=== PATIENT | male | born 1940 | race Caucasian/White ===

== ENCOUNTER 2016-09-02 17:50 | Observation (INO) | payer MEDICARE, BC ==
[2016-09-02 18:23] LABS: Hematocrit 45 % (42-52); Hemoglobin 15.1 g/dl (14.0-18.0); Mean Corpuscular HGB Conc 34 g/dl (31-36); Mean Corpuscular Hemoglobin 31 pg (27-31); Mean Corpuscular Volume 91 fL (80-94); Mean Platelet Volume 8 um3 (7.4-10.4); Red Blood Count 4.91 10^6/ul (4.0-5.4); Red Cell Distribution Width 14 % (10.5-15); White Blood Count 9.2 10^3/ul (3.5-10.8)
[2016-09-02 18:35] LABS: Albumin 4.6 g/dL (3.2-5.2); BUN/Creatinine Ratio 16.8 (8-20); Calcium 9.7 mg/dL (8.6-10.3); EGFR African American 80.7 (>60); EGFR Non-African American 62.8 (>60); Globulin 3.2 g/dL (2-4); Potassium 3.6 mmol/L (3.5-5.0); Total Bilirubin 0.7 mg/dL (0.2-1.0); Total Protein 7.8 g/dL (6.4-8.9)
[2016-09-02 18:38] LABS: Troponin I 0.05 ng/mL (<0.04)
--- NOTE | 2016-09-02 18:48 | RAD ---
HISTORY: Chest pain COMPARISONS: September 12, 2014 VIEWS:1: Single frontal portable view of the chest at 6:25 PM FINDINGS: LINES AND TUBES: None. CARDIOMEDIASTINAL SILHOUETTE: The aorta is tortuous. The cardiomediastinal silhouette is otherwise normal for portable technique. PLEURA: There is stable elevation of left hemidiaphragm. LUNG PARENCHYMA: The lungs are clear. ABDOMEN: The upper abdomen is clear. There is no subphrenic gas. BONES AND SOFT TISSUES: The patient is status post median sternotomy. IMPRESSION: NO ACTIVE CARDIOPULMONARY DISEASE.
[2016-09-02] MEDS ORDERED: Nitroglycerin TAB 0.4 MG* 0.4 MG TAB SL ONE (19:03)
[2016-09-02] MEDS ORDERED: Labetalol IV* 5 MG/ML 20 ML VIAL IV PUSH ONE (19:26)
[2016-09-02] MEDS ORDERED: Enoxaparin(*) 100 MG/ML SYR SUBCUT ONE (19:33)
[2016-09-02] MEDS: Nitroglycerin 2% OINT* 1 GM PAK TOPICAL SCH (20:05)
[2016-09-02] MEDS ORDERED: ALPRAZolam TAB* 0.25 MG PO PRN (20:11)
[2016-09-02 20:28] LABS: Urine Bacteria 1+ (Absent); Urine Bilirubin Negative (Negative); Urine Glucose Negative (Negative); Urine Nitrite Negative (Negative)
[2016-09-02] MEDS ORDERED: Metoprolol Tartrate TAB* 25 MG PO SCH (21:00)
[2016-09-02 21:01] LABS: Troponin I 0.06 ng/mL (<0.04)
[2016-09-02] MEDS: Metoprolol Tartrate TAB* 25 MG PO SCH (21:34)
[2016-09-02] MEDS: Gabapentin CAP(*) 100 MG PO SCH (21:34)
[2016-09-02] MEDS ORDERED: Heparin VIAL(*) 5000 UNITS/ML VIAL (FIVE THOUSAND) SUBCUT SCH (22:00)
--- NOTE | 2016-09-02 22:43 | ED ---
Jade Domingo Matthew, scribed for Mathew Ulloa MD on 09/02/16 at 1934 . HPI Chest Pain - HPI Summary HPI Summary: A 76 y/o male presents to the ED with worsening chest pain since 14:00. The pain is rated 3/10 in severity and described as tightness. The patient states that he always had baseline chest tightness; however, the sensation worsened today, which prompted him to present to the ED. Associated symptoms include mild headache, lightheadedness, unsteadiness, and increased chest tightness. The symptoms started today while the patient was shopping at [employer]. He noted that he began to feel dehydrated and drank 3 pints of water without relief. He then returned home and took aspirin and his symptoms did not subside. Currently , the patient's chest tightness feels like baseline. The patients been on a steroids since 08/29/16 for a rash on his chest. He has a Hx of an episode of syncopal episodes. - History of Current Complaint Chief Complaint: EDChestPainROMI Hx Obtained From: Patient Onset/Duration: Started Hours Ago, Atraumatic, Resolved Time of Onset: 14:00 Timing: Constant Initial Severity: Mild Current Severity: Mild Pain Intensity: 3 Pain Scale Used: 0-10 Numeric Character: Tightness Associated Signs and Symptoms: Positive: Chest Pain, Lightheadedness, Other: - Headache; Unsteady Gait - Allergy/Home Medications Allergies/Adverse Reactions: Allergies Allergy/AdvReac Type Severity Reaction Status Date / Time Pregabalin [From Lyrica] Allergy Intermediate change Verified 03/29/15 07:13 mental status Sertraline [From Zoloft] Allergy Intermediate Dizziness Verified 03/29/15 07:13 Escitalopram [From Lexapro] Allergy Headache Verified 03/29/15 07:13 Fluticasone [From Flovent] Allergy loss of Verified 03/29/15 07:13 voice Lisinopril Allergy with hctz Verified 03/29/15 07:13 constant cough Home Medications: Home Medications Ciclesonide 80 MCG MDI (NF) [Alvesco 80 MDI (NF)] 1 inhaler INH DAILY 09/02/16 [ History Confirmed 09/02/16] Fexofenadine (NF) [Aracely 180 (NF)] 180 mg PO DAILY 09/02/16 [History Confirmed 09/02/16] Gabapentin [Gabapentin] 100 mg PO BID 09/02/16 [History Confirmed 09/02/16] Levalbuterol Tartrate [Levalbuterol Tartrate Hfa] 2 puff INH Q4HR PRN 09/02/16 [ History Confirmed 09/02/16] Metoprolol Tartrate [Metoprolol Tartrate] 12.5 mg PO BID 09/02/16 [History Confirmed 09/02/16] Spironolactone/HCTZ 25-25 MG* [Aldactazide 25-25*] 0.5 mg PO BID 09/02/16 [ History Confirmed 09/02/16] Tamsulosin HCl [Tamsulosin HCl] 0.4 mg PO DAILY 09/02/16 [History Confirmed ] Zolpidem TAB* [Ambien*] 10 mg PO QPM 09/02/16 [History Confirmed 09/02/16] amLODIPine TAB* [Norvasc TAB*] 5 mg PO DAILY 09/02/16 [History Confirmed ] PMH/Surg Hx/FS Hx/Imm Hx Endocrine/Hematology History: Reports: Other Endocrine/Hematological Disorders - "I'm a prediabetic" Denies: Hx Diabetes, Hx Systemic Lupus Erythematosus Cardiovascular History: Reports: Hx Aneurysm - aaa 2004, Hx Hypercholesterolemia , Hx Hypertension, Other Cardiovascular Problems/Disorders - cardiac bypass 2008 Denies: Hx Congestive Heart Failure, Hx Pacemaker/ICD Respiratory History: Reports: Hx Asthma GI History: Reports: Hx Gastroesophageal Reflux Disease History: Reports: Hx Renal Disease - abnormal gfr, Other Problems/ Disorders - hx stones,prostate ca Denies: Hx Dialysis Musculoskeletal History: Reports: Other Musculoskeletal History - arthritis Denies: Hx Rheumatoid Arthritis Sensory History: Denies: Hx Hearing Aid Neurological History: Reports: Other Neuro Impairments/Disorders - neuropathy of b/l toes Psychiatric History: Reports: Hx Anxiety Denies: Hx Panic Disorder - Cancer History Cancer Type, Location and Year: prostate CA with radiation Hx Chemotherapy: No Hx Radiation Therapy: Yes - Surgical History Surgery Procedure, Year, and Place: Triple A(abdomen surgery), Quadruple bypass with 5 stents ,hernia x3,gallbladder 1972,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/25/14 IMPLANTABLE EVENT [employer] Infectious Disease History: No Infectious Disease History: Denies: Traveled Outside the [place] in Last 30 Days - Family History Known Family History: Positive: Cardiac Disease - Social History Alcohol Use: Rare Alcohol Amount: glass of wine a week Substance Use Type: Reports: None Smoking Status (MU): Former Smoker Review of Systems Constitutional: Negative Eyes: Negative ENT: Negative Positive: Chest Pain - described as tightness Respiratory: Negative Gastrointestinal: Negative Genitourinary: Negative Musculoskeletal: Negative Skin: Negative Neurological: Other - lightheadedness; unsteady gait Positive: Headache Psychological: Normal All Other Systems Reviewed And Are Negative: Yes Physical Exam Triage Information Reviewed: Yes Vital Signs On Initial Exam: Initial Vitals Temp Pulse Resp BP Pulse Ox 98.8 F 67 18 219/114 94 09/02/16 17:58 09/02/16 17:58 09/02/16 17:58 09/02/16 17:58 09/02/16 17:58 Vital Signs Reviewed: Yes Appearance: Positive: Well-Appearing, No Pain Distress Skin: Positive: Warm, Skin Color Reflects Adequate Perfusion, Dry Head/Face: Positive: Normal Head/Face Inspection Eyes: Positive: Normal ENT: Positive: Normal ENT inspection Neck: Positive: Supple, Nontender Respiratory/Lung Sounds: Positive: Clear to Auscultation, Breath Sounds Present Cardiovascular: Positive: RRR Abdomen Description: Positive: Nontender, Soft Bowel Sounds: Positive: Present Musculoskeletal: Positive: Normal, Strength/ROM Intact Neurological: Positive: Normal, Sensory/Motor Intact, Alert, Oriented to Person Place, Time Psychiatric: Positive: Normal, Affect/Mood Appropriate - [place] Coma Scale Coma Scale Total: 15 Diagnostics - Vital Signs Vital Signs Temp Pulse Resp BP Pulse Ox 09/02/16 18:06 72 17 205/100 09/02/16 17:58 98.8 F 67 18 219/114 94 - Laboratory Lab Results: Lab Results 09/02/16 09/02/16 09/02/16 Range/Units 18:00 18:00 18:00 WBC 9.2 (3.5-10.8) 10^3/ul RBC 4.91 (4.0-5.4) 10^6/ul Hgb 15.1 (14.0-18.0) g/dl Hct 45 (42-52) % MCV 91 (80-94) fL MCH 31 (27-31) pg MCHC 34 (31-36) g/dl RDW 14 (10.5-15) % Plt Count 206 (150-450) 10^3/ul MPV 8 (7.4-10.4) um3 Neut % (Auto) 76.8 (38-83) % Lymph % (Auto) 12.9 L (25-47) % Refugio % (Auto) 8.5 (1-9) % Eos % (Auto) 1.3 (0-6) % Baso % (Auto) 0.5 (0-2) % Absolute Neuts (auto) 7.1 (1.5-7.7) 10^3/ul Absolute Lymphs (auto) 1.2 (1.0-4.8) 10^3/ul Absolute Monos (auto) 0.8 (0-0.8) 10^3/ul Absolute Eos (auto) 0.1 (0-0.6) 10^3/ul Absolute Basos (auto) 0.1 (0-0.2) 10^3/ul Absolute Nucleated RBC 0 10^3/ul Nucleated RBC % 0 Sodium 133 (133-145) mmol/L Potassium 3.6 (3.5-5.0) mmol/L Chloride 98 L (101-111) mmol/L Carbon Dioxide 28 (22-32) mmol/L Anion Gap 7 (2-11) mmol/L BUN 19 (6-24) mg/dL Creatinine 1.13 (0.67-1.17) mg/dL Est GFR ( Amer) 80.7 (>60) Est GFR (Non-Af Amer) 62.8 (>60) BUN/Creatinine Ratio 16.8 (8-20) Glucose 100 (70-100) mg/dL Lactic Acid 1.2 (0.5-2.0) mmol/L Calcium 9.7 (8.6-10.3) mg/dL Total Bilirubin 0.70 (0.2-1.0) mg/dL AST 22 (13-39) U/L ALT 25 (7-52) U/L Alkaline Phosphatase 46 (34-104) U/L Total Creatine Kinase 243 H (10-223) U/L CK-MB (CK-2) 10.9 H (0.6-6.3) ng/mL Troponin I 0.05 H* (<0.04) ng/mL Total Protein 7.8 (6.4-8.9) g/dL Albumin 4.6 (3.2-5.2) g/dL Globulin 3.2 (2-4) g/dL Albumin/Globulin Ratio 1.4 (1-3) Urine Color Urine Appearance Urine pH (5-9) Ur Specific Roca (1.010-1.030) Urine Protein (Negative) Urine Ketones (Negative) Urine Blood (Negative) Urine Nitrate (Negative) Urine Bilirubin (Negative) Urine Urobilinogen (Negative) Ur Leukocyte Esterase (Negative) Urine WBC (Auto) (Absent) Urine RBC (Auto) (Absent) Urine Bacteria (Absent) Urine Glucose (Negative) 09/02/16 Range/Units 18:00 WBC (3.5-10.8) 10^3/ul RBC (4.0-5.4) 10^6/ul Hgb (14.0-18.0) g/dl Hct (42-52) % MCV (80-94) fL MCH (27-31) pg MCHC (31-36) g/dl RDW (10.5-15) % Plt Count (150-450) 10^3/ul MPV (7.4-10.4) um3 Neut % (Auto) (38-83) % Lymph % (Auto) (25-47) % Refugio % (Auto) (1-9) % Eos % (Auto) (0-6) % Baso % (Auto) (0-2) % Absolute Neuts (auto) (1.5-7.7) 10^3/ul Absolute Lymphs (auto) (1.0-4.8) 10^3/ul Absolute Monos (auto) (0-0.8) 10^3/ul Absolute Eos (auto) (0-0.6) 10^3/ul Absolute Basos (auto) (0-0.2) 10^3/ul Absolute Nucleated RBC 10^3/ul Nucleated RBC % Sodium (133-145) mmol/L Potassium (3.5-5.0) mmol/L Chloride (101-111) mmol/L Carbon Dioxide (22-32) mmol/L Anion Gap (2-11) mmol/L BUN (6-24) mg/dL Creatinine (0.67-1.17) mg/dL Est GFR ( Amer) (>60) Est GFR (Non-Af Amer) (>60) BUN/Creatinine Ratio (8-20) Glucose (70-100) mg/dL Lactic Acid (0.5-2.0) mmol/L Calcium (8.6-10.3) mg/dL Total Bilirubin (0.2-1.0) mg/dL AST (13-39) U/L ALT (7-52) U/L Alkaline Phosphatase (34-104) U/L Total Creatine Kinase (10-223) U/L CK-MB (CK-2) (0.6-6.3) ng/mL Troponin I (<0.04) ng/mL Total Protein (6.4-8.9) g/dL Albumin (3.2-5.2) g/dL Globulin (2-4) g/dL Albumin/Globulin Ratio (1-3) Urine Color Colorless Urine Appearance Clear Urine pH 7.0 (5-9) Ur Specific Roca 1.003 L (1.010-1.030) Urine Protein Negative (Negative) Urine Ketones Negative (Negative) Urine Blood 2+ H (Negative) Urine Nitrate Negative (Negative) Urine Bilirubin Negative (Negative) Urine Urobilinogen Negative (Negative) Ur Leukocyte Esterase Negative (Negative) Urine WBC (Auto) Absent (Absent) Urine RBC (Auto) Trace(0-2/hpf) (Absent) Urine Bacteria 1+ H (Absent) Urine Glucose Negative (Negative) Result Diagrams: 09/02/16 18:00 09/02/16 18:00 Lab Statement: Any lab studies that have been ordered have been reviewed, and results considered in the medical decision making process. - Radiology CXR Xray Interpretation: No Acute Changes - IMPRESSION: NO ACTIVE CARDIOPULMONARY DISEASE. Radiology Interpretation Completed By: Radiologist - EKG 17:47 Cardiac Rate: NL - 73 bpm EKG Rhythm: Sinus Rhythm EKG Interpretation: LBBB Chest Pain Course/Dx - Course Course Of Treatment: Mr. Corona presented with an atypical CP that he always has but got worse. When I saw him, he reported that he was just about back to normal. He had a left bundle branch on ecg which was new from our last (two years ago). Lashaunrbossa's criteria were not met. His initial trop was low equivocal. - Diagnoses Provider Diagnoses: Chest pain - Provider Notifications Discussed Care Of Patient With: Dr. Henderson (Cardologist) -- Notified of patient' s history. Dr. Chanel (Hospitalist) -- Notified of patient's history and will admit the patient into her services. Discharge - Discharge Plan Condition: Stable Disposition: ADMITTED TO [facility] documentation as recorded by the Jade martínez Matthew accurately reflects the service I personally performed and the decisions made by me, Mathew Ulloa MD.
--- NOTE | 2016-09-02 23:45 | HP ---
HISTORY AND PHYSICAL: DATE OF ADMISSION: 09/02/16 PROVIDER: Shwetha Kinsey NP. ATTENDING PHYSICIAN: Dr. Kendall Hooks * (report dictated by Shwetha Kinsey NP). PRIMARY CARE PROVIDER: Dr. Kade Ojeda. DRILL PRESS SET UP OPERATOR RADIAL: Dr. Helton. CHIEF COMPLAINT: Chest pain. HISTORY OF PRESENT ILLNESS: Mr. Corona is a 76-year-old male with a past medical history of coronary artery disease, status post quadruple heart bypass in 2008, abdominal aortic aneurysm, hypertension, asthma, BPH, who presents to the emergency department today with reports of chest pain. Mr. Corona reports he has chronic chest pain at his baseline ever since his quadruple heart bypass in 2008 ; however, he has gotten so used to it that he usually does not notice that. Today he reports that he went to the park and was getting out of a car. He reports that he had just smoked his pipe and states that occasionally that makes him not to feel well, so he contributed feeling a little off due to this. He reports initially he felt lightheaded, went for his walk, stopped at [facility] to grocery shop, and when he was in [facility] he started to feel worse, with report of a little headache, nausea, and realized he had not been drinking much water. So, he reports that he checked out and he drank 3 pints of water. He went home, put his groceries away, and continued to feel worse, now nothing that he had left chest wall tightness and which he reports a band-like pressure , which was not going away. He then began to become worried. He took 4 baby aspirin at home, he called his neighbor who came over and took his blood pressure, which he reports was 215/114. He called his son and the decision to call the ambulance was made. The patient reports that he continued to have chest pain through the ambulance ride, until he got here, then he reports it resolved. He has continued to have blood pressures in the 200s in the emergency department. He was not given any sublingual nitro up until the time I saw him. On my evaluation of the patient in the emergency department, he is alert and oriented x3; in no acute distress. He reports that his chest pain has "almost resolved" and continues to have what he calls his baseline chest discomfort. He was noted to have a blood pressure of 220/115. He was given a sublingual nitro which did bring his blood pressures down to around 160/70. The patient does report that he experienced some nausea when he was experiencing chest pain; denied diaphoresis. He reports he has been in "good health" and exercises daily. Now the patient states that he feels like he is back to his baseline, minus a slight headache. The patient is noted to have a troponin of 0.05 on admission and an EKG showing sinus rhythm with a left bundle branch block. The last EKG we have on file is from 2 years in 2014, showing normal sinus rhythm, with no left bundle branch block. The patient's son Jono is at the bedside. PAST MEDICAL HISTORY: 1. Asthma. 2. Hypertension. 3. Hyperlipidemia. 4. BPH. 5. GERD. 6. Coronary artery disease with history of quadruple heart bypass in 2008 at [facility], with cardiac catheterization at [facility] on 11/13/09. 7. Spinal compression. 8. Clements's esophagus. 9. History of rhabdomyolysis. 10. Abdominal aortic aneurysm in 2014. 11. History of malignant neoplasm of the prostate. 12. Neuropathy. 13. Vitamin D deficiency. 14. Questionable TIA, 09/12/14 PAST SURGICAL HISTORY: 1. Status post cholecystectomy at [facility] in 1971. 2. Hernia repair in 1987, bilateral, and left side in 2007 at [facility]. 3. Abdominal aortic aneurysm in 2004 at [facility]. 4. Prostate radium seed implantation, November 2007, [facility]. 5. Quadruple heart bypass in [facility] in 2008. 6. Cardiac catheterization in [facility] in 2009. 7. Renal cyst drained at [facility], 01/09/10. 8. Holter monitor, Dr. Henderson, [facility], October 2014. MEDICATIONS: Home Medications: 1. Amlodipine 5 mg p.o. daily. 2. Spironolactone/HCTZ 25/25, half a tablet in the morning and half a tablet in the evening. 3. Aspirin 81 mg daily. 4. Metoprolol 12.5 mg b.i.d. 5. Rosuvastatin calcium 5 mg p.o. q.p.m. 6. Nitroglycerin 0.4 mg one every 5 minutes, up to 3, p.r.n. chest pain. 7. Vitamin D daily. 8. Folic acid 400 mg p.o. b.i.d. 9. Pantoprazole DR 40 mg b.i.d. 10. Alvesco 80 mcg inhaler, 1 puff q.a.m. 11. Levalbuterol tartrate HFA q.4 to 6 hours p.r.n. shortness of breath. 12. Aracely 180 mg p.o. daily. 13. Cymbalta 60 mg p.o. daily. 14. Gabapentin 100 mg p.o. b.i.d. 15. Flomax 0.4 mg p.o. daily. 16. Ambien 10 mg p.o. q.p.m. 17. Xanax 0.25 mg one tab every q.8 hours p.r.n. 18. Ketoconazole 2% cream for face as needed, prescribed by Dr. Fitch. 19. Clobetasol Propionate 0.5% for leg b.i.d., Dr. Fitch. 20. Hydrocortisone valerate 2% mixed with econazole nitrate 1%, Dr. Fitch. 21. Tacrolimus 0.1% ? 22. Acetaminophen 500 mg p.o. q.8 hours p.r.n. 23. Multivitamin one tab p.o. daily. 24. Benadryl HCl 25 mg p.o. p.r.n. sleep and allergy. ALLERGIES: 1. LYRICA. 2. ZOLOFT. 3. LEXAPRO. 4. FLONASE. 5. LISINOPRIL. FAMILY HISTORY: The patient reports his mother and father had a history of coronary artery disease. SOCIAL HISTORY: The patient quit smoking 35 years ago and repots he started smoking a pipe approximately 1 year ago after his . Occasional alcohol use. He currently lives alone. He has two grown children, Tracy and Jono. Jono is his healthcare proxy. His number is [phone]. REVIEW OF SYSTEMS: A 14-point review of systems was performed. All the pertinent positives and negatives are mentioned in the history of present illness. All the remaining systems are negative. PHYSICAL EXAMINATION GENERAL APPEARANCE: Alert and oriented x3, 76-year-old male, sitting up in the emergency department stretcher, in no acute distress. Very pleasant, good historian. VITAL SIGNS: Temperature 98.8, heart rate 70, respirations 18, O2 sat 94% on room air, and blood pressure 219/114. HEENT: Head is normocephalic and atraumatic. Pupils equal, round, reactive to light. Oropharynx is clear. Moist mucous membranes. Good dentition. NECK: Supple. No cervical or supraclavicular lymphadenopathy. No JVD noted. RESPIRATORY: Clear to auscultation bilaterally. Good aeration throughout. CARDIAC: S1 and S2. No murmurs, rubs, or gallops are appreciated. ABDOMEN: Soft, nontender, and nondistended. Normal bowel sounds x4. EXTREMITIES: No lower extremity edema noted. 2+ DP pulses bilaterally. MUSCULOSKELETAL: No clubbing or cyanosis noted. No abnormalities. Full range of motion in all extremities. Strength is 5/5 throughout. SKIN: Warm, pink, and dry. No open wounds noted. NEUROLOGIC: Cranial nerves II through XII are intact. Moves all extremities equally. Sensation to lower extremities is intact to light touch. Tower Director are equal. Tongue is midline. No pronator drift. PSYCH: Alert and oriented x3. LABORATORY DATA AND DIAGNOSTIC STUDIES: Sodium 133, potassium 3.6, chloride 98 , carbon dioxide 28, anion gap 7, BUN 19, creatinine 1.13, glucose 100, lactic acid 1.2, calcium 9.7. Total bilirubin 0.70, AST 22, ALT 25, alkaline phosphatase 46. Troponin 0.05. Total protein 7.8. Albumin 4.6. WBC is 9.2, RBC is 4.91, HGB 15.1, HCT 45, MCV 91, MCH 31, MCHC 34, RDW 14, platelet count 206. EKG shows sinus rhythm with a rate of 73, with a left bundle branch block noted. Chest x-ray, impression: No active cardiopulmonary disease. ASSESSMENT AND PLAN: Mr. Corona is a 76-year-old male with a past medical history of coronary artery disease with quadruple cardiac bypass in 2008, hypertension, hyperlipidemia, current tobacco abuse, who presents to the emergency department today with a report of chest pain. 1. Chest pain, rule out myocardial infarction. The patient will be admitted to the hospitalist service on observation for chest pain, rule out acute coronary syndrome. We will trend cardiac enzymes and we will give the patient a full dose of Lovenox. He did take 4 aspirin at home and did receive 1 sublingual nitro in the emergency department. His blood pressure is much better controlled at this time. Plan for n.p.o. after midnight with cardiac nuclear stress test if the patient is not having an NSTEMI; I believe the patient can do the exercise portion as he reports he is very active at his baseline. We will obtain records from [facility] as he did have a cardiac catheterization in 2009. The patient is currently chest pain free. Continue the patient's home medications for CAD; aspirin, metoprolol tartrate 12.5 mg p.o. b.i.d. 2. Hypertensive urgency. This appears to have resolved at this time after 1 sublingual nitro. The patient was given 1 sublingual nitro and placed on a nitro patch. We will resume the patient's home blood pressure medications. 3. Asthma. Well controlled, albuterol p.r.n. 4. Gastroesophageal reflux disease. Continue PPI. 5. Depression/anxiety. Continue Cymbalta, Xanax p.r.n. 6. Benign prostatic hypertrophy. Continue Flomax. 7. DVT prophylaxis. The patient has been given 1 full dose of Lovenox in the emergency department. It will need to determined in the morning if the patient needs DVT prophylaxis versus full anticoagulation. 8. Code status. Full code. The patient's son Jono is the healthcare proxy, [phone]. 9. Hospital status. Observation for chest pain. Rule out acute coronary syndrome. TIME SPENT: Approximately 75 minutes were spent on this admission. This case was discussed with the attending physician Dr. Hooks who agrees with the plan of care. SHWETHA KINSEY NP CC: Dr. Helotn; Dr. Kade Ojeda. * [id number]/[facility] #: [id number] NOEL
[2016-09-03] MEDS: Acetaminophen TAB* 325 MG PO PRN ×3 (01:13→13:05)
[2016-09-03 02:34] LABS: Hematocrit 39 % (42-52); Hemoglobin 13.2 g/dl (14.0-18.0); Mean Corpuscular HGB Conc 34 g/dl (31-36); Mean Corpuscular Hemoglobin 31 pg (27-31); Mean Corpuscular Volume 92 fL (80-94); Mean Platelet Volume 7 um3 (7.4-10.4); Red Blood Count 4.25 10^6/ul (4.0-5.4); Red Cell Distribution Width 14 % (10.5-15); White Blood Count 7.1 10^3/ul (3.5-10.8)
[2016-09-03 02:52] LABS: BUN/Creatinine Ratio 16.5 (8-20); EGFR African American 89.8 (>60); EGFR Non-African American 69.8 (>60); Potassium 3.3 mmol/L (3.5-5.0)
[2016-09-03] MEDS: Nitroglycerin 2% OINT* 1 GM PAK TOPICAL SCH ×2 (04:34→13:13)
[2016-09-03] MEDS ORDERED: Enoxaparin(*) 100 MG/ML SYR SUBCUT SCH ×2 (08:00→20:00)
[2016-09-03] MEDS ORDERED: Tamsulosin CAP* 0.4 MG PO SCH (09:00)
[2016-09-03] MEDS ORDERED: Metoprolol Tartrate TAB* 25 MG PO SCH (09:00)
[2016-09-03] MEDS ORDERED: Aspirin Low Dose CHEW TAB* 81 MG PO SCH (09:00)
[2016-09-03] MEDS ORDERED: amLODIPine TAB* 5 MG PO SCH (09:00)
[2016-09-03] MEDS ORDERED: DULoxetine DR CAP* 30 MG CAP.DR PO SCH (09:00)
[2016-09-03] MEDS ORDERED: Multivitamins/Minera Areds(NF) 1 CAP CAP PO SCH (09:00)
[2016-09-03] MEDS ORDERED: Aminophylline IV* 25 MG/ML 10 ML VIAL ONE (10:30)
[2016-09-03] MEDS ORDERED: Regadenoson* 0.4 MG/5 ML SYRINGE ONE (10:30)
[2016-09-03] MEDS ORDERED: Potassium Chlor TAB* 20 MEQ TAB.ER PO ONE ×2 (12:33→18:00)
--- NOTE | 2016-09-03 13:01 | RAD ---
HISTORY: Elevated troponins, left bundle-branch block, hypertension, shortness of breath, chest pain COMPARISONS: None TECHNIQUE: A 1 day stress/rest myocardial perfusion study was performed, with pharmacologic stress. The stress portion was monitored by Dr. France. Gated SPECT imaging was performed, with CT-based attenuation correction DOSE: Stress: Technetium 99m tetrofosmin, 25.76 millicuries, injected at 11:14 AM September 03, 2016 Rest: Technetium 99m tetrofosmin, 10.07 millicuries, injected at 9:23 AM on September 03, 2016 Pharmacologic agent: Lexiscan FINDINGS: CARDIAC MONITORING: Nondiagnostic EKG due to resting abnormalities. EF: 43 % TID: 1.05 MOTION: There is mild diffuse hypokinesia. PERFUSION: There is moderate to large fixed defect of the lateral wall and a smaller defect of the septum towards the apex. There is marginal reversibility suggestive of chronic infarct with marginal ischemia OTHER: None IMPRESSION: 1. DECREASED EJECTION FRACTION. 2. FIXED DEFECT OF THE LATERAL WALL WITH A SMALLER DEFECT OF THE SEPTUM, WITH MARGINAL REVERSIBILITY SUGGESTIVE OF INFARCTS WITH MARGINAL ISCHEMIA ASSESSMENT: INTERMEDIATE RISK. Based on imaging criteria from ACC/AHA 2002. Guideline Update for the Management of Patient's with Chronic Stable Angina, table 23. Noninvasive Risk Stratification.
[2016-09-03] MEDS: Metoprolol Tartrate TAB* 25 MG PO SCH (13:06)
[2016-09-03] MEDS: Gabapentin CAP(*) 100 MG PO SCH (13:07)
--- NOTE | 2016-09-03 15:25 | PN ---
Subjective Date of Service: 09/03/16 Interval History: Patient seen and examined at bedside. Pt states that he is hungry with some intermittent nausea. Pt states that he continues to have chest tightness, he describes this as a band around his chest. Reports that this chest tightness is at his baseline. Pt doesn't feel like the nitro helped with the chest discomfort , and gave him a headache. Pt reports blood in his urine since yesterday, that has now resolved. Denies fever, chills, shortness of breath, V/D. Tele: Sinus rhythm, with occasional 1 degree block and leonard at times. Rate 50- 60's Family History: Unchanged from Admission Social History: Unchanged from Admission Past Medical History: Unchanged from Admission Objective Active Medications: Acetaminophen (Tylenol Tab*) 650 mg PO Q4H PRN Reason: PAIN Alprazolam (Xanax Tab*) 0.25 mg PO Q8H PRN Reason: ANXIETY Amlodipine Besylate (Norvasc Tab*) 5 mg PO DAILY DELMER Aspirin (Aspirin Low Dose Tab*) 81 mg PO DAILY DELMER Duloxetine HCl (Cymbalta Cap*) 60 mg PO DAILY DELMER Enoxaparin Sodium (Lovenox(*)) 90 mg SUBCUT Q12H DELMER Gabapentin (Neurontin Cap(*)) 100 mg PO BID [facility] Metoprolol Tartrate (Lopressor Tab*) 12.5 mg PO BID [facility] Multivitamins/Minerals (Preservision Areds(Multivitamins/Mineral)(Nf)) 1 cap PO DAILY DELMER Nitroglycerin (Nitroglycerin 2% Oint*) 1 inch TOPICAL Q8H DEL[facility] Potassium Chloride (Klor Con Er Tab*) 20 meq PO ONCE ONE Stop: 09/03/16 18:01 Tamsulosin HCl (Flomax Cap*) 0.4 mg PO DAILY [facility] Vital Signs 09/02/16 09/02/16 09/02/16 19:00 19:14 19:17 Temperature Pulse Rate 67 67 68 Respiratory 20 16 17 Rate Blood Pressure 207/113 204/120 (mmHg) O2 Sat by Pulse 94 95 92 Oximetry 09/02/16 09/02/16 09/02/16 19:30 19:40 19:50 Temperature Pulse Rate 73 64 Respiratory 18 15 Rate Blood Pressure 156/94 162/103 169/98 (mmHg) O2 Sat by Pulse 93 95 Oximetry 09/02/16 09/02/16 09/02/16 20:00 20:10 20:19 Temperature 98.7 F Pulse Rate 64 62 64 Respiratory 13 16 16 Rate Blood Pressure 175/92 175/97 175/97 (mmHg) O2 Sat by Pulse 93 95 Oximetry 09/02/16 09/02/16 09/02/16 20:30 21:34 23:34 Temperature 98.3 F Pulse Rate 59 Respiratory 17 16 18 Rate Blood Pressure 185/100 (mmHg) O2 Sat by Pulse 96 Oximetry 09/02/16 09/03/16 09/03/16 23:40 04:04 08:13 Temperature 98.1 F 98.3 F 98.6 F Pulse Rate 58 52 66 Respiratory 20 16 16 Rate Blood Pressure 163/95 161/89 161/90 (mmHg) O2 Sat by Pulse 93 96 96 Oximetry 09/03/16 09/03/16 12:50 13:07 Temperature 99.1 F Pulse Rate 65 Respiratory 16 19 Rate Blood Pressure 177/92 (mmHg) O2 Sat by Pulse 99 Oximetry Oxygen Devices in Use Now: None Appearance: NAD, laying in bed Eyes: No Scleral Icterus, PERRLA Ears/Nose/Mouth/Throat: NL Teeth, Lips, Gums, Mucous Membranes Moist Neck: NL Appearance and Movements; NL JVP, Trachea Midline Respiratory: Symmetrical Chest Expansion and Respiratory Effort, Clear to Auscultation Cardiovascular: RRR Abdominal: NL Sounds; No Tenderness; No Distention Extremities: No Edema Skin: No Rash or Ulcers Neurological: Alert and Oriented x 3, NL Muscle Strength and Tone Lines/Tubes/Other Access: Clean, Dry and Intact Peripheral IV - site benign Nutrition: Taking PO's Result Diagrams: 09/03/16 02:23 09/03/16 02:23 Additional Lab and Data: Assess/Plan/Problems-Billing Assessment: Mr. Corona is a 76 yo male with PMH significant for CAD S/P quadruple cardiac bypass in 2008, HTN, HLD, tobacco abuse who presented to the emergency room with complaints of chest discomfort. - Patient Problems (1) Chest pain Code(s): R07.9 - CHEST PAIN, UNSPECIFIED SNOMED Code(s): 98670581 Comment: - Pt continues to report a "band of chest tightness" that is his baseline - Troponin peaked at 0.06 - Nuclear stress test shows an intermediate risk - Cardiology consult, pending (2) HTN (hypertension) Code(s): I10 - ESSENTIAL (PRIMARY) HYPERTENSION SNOMED Code(s): 98875481 Comment: - HTN urgency on admission, this resolved with SL Nitro - SBP 160-180's - Continue Metoprolol and Amlodipine - Resume Spironolactone/HCTZ (3) History of coronary artery disease Code(s): Z86.79 - PERSONAL HISTORY OF OTHER DISEASES OF THE CIRCULATORY SYSTEM SNOMED Code(s): 971706150 Comment: - Continue Metoprolol, statin and ASA (4) Anxiety and depression Code(s): F41.9 - ANXIETY DISORDER, UNSPECIFIED; F32.9 - MAJOR DEPRESSIVE DISORDER, SINGLE EPISODE, UNSPECIFIED SNOMED Code(s): 159489168 Comment: - Continue Cymbalta and Xanax PRN (5) BPH (benign prostatic hyperplasia) Code(s): N40.0 - BENIGN PROSTATIC HYPERPLASIA WITHOUT LOWER URINRY TRACT SYMP SNOMED Code(s): 990711786 Comment: - Continue Flomax (6) Asthma Code(s): J45.909 - UNSPECIFIED ASTHMA, UNCOMPLICATED SNOMED Code(s): 702128850 Comment: - Controlled - Continue albuterol PRN (7) GERD (gastroesophageal reflux disease) Code(s): K21.9 - GASTRO-ESOPHAGEAL REFLUX DISEASE WITHOUT ESOPHAGITIS SNOMED Code(s): 340524619 Comment: - Continue Protonix or autosub (8) DVT prophylaxis Code(s): UAL5685 - SNOMED Code(s): 638105457 Comment: - Continue Lovenox until cardiology consult (9) Full code status Code(s): Z78.9 - OTHER SPECIFIED HEALTH STATUS SNOMED Code(s): 169316156 Status and Disposition: OBV. Discharge to home when medically stable, possibly later today.
[2016-09-03 16:39] VITALS: BP 177/96
[2016-09-03] MEDS ORDERED: Spironolactone/HCTZ 25-25 MG* 1 TAB PO SCH (21:00)
[2016-09-03] MEDS ORDERED: Atorvastatin* 10 MG TAB PO SCH (21:00)
[2016-09-03] MEDS ORDERED: Omeprazole CAP* 20 MG PO SCH (21:00)
--- NOTE | 2016-09-03 21:06 | CONS ---
CARDIOLOGY CONSULTATION: DATE OF CONSULT: 09/03/16 INDICATIONS FOR CONSULT: Chest pain, coronary artery disease. HISTORY OF PRESENT ILLNESS: The patient is a 76-year-old gentleman with a history of coronary artery disease, history of coronary artery bypass surgery in 2008, who is followed closely by Dr. Helton. The patient was brought to the emergency room because of chest pressure. The patient states that he has had on and off chest pressure ever since his coronary bypass surgery in 2008, it is not associated with exertion. It is random throughout the day, it is not associated with meals. He feels there is a pressure in the center of his chest. He does not describe this discomfort as pain, it does not radiate to his jaw or shoulder. It lasts generally for 15 or 20 minutes and then resolves on its own. Yesterday, however, he had the same discomfort. However, was much more intense than he has experienced in the past and had some radiation to his left shoulder. Generally, the patient just waits for this discomfort to go away ; however, for 20 minutes the symptoms did not change and he decided to come to the emergency room. On arrival to the emergency room, the patients' EKG showed a left bundle branch block. The patient's previous EKG just showed nonspecific intraventricular conduction delay. The patient's initial troponin level was 0.05. The patient was admitted to the hospital for evaluation. Overnight, the patient's troponin level did not change significantly. He had 4 troponin levels all at 0.05. The patient had no further chest discomfort or chest tightness overnight. The patient underwent a chemical nuclear stress test today which showed a quzkj-gn-mofuamrn size area of infarct to the inferolateral wall with mild linus-infarct ischemia. His ejection fraction was normal. His TID was normal. In reviewing the patient's record, he had a stress test in April of 2013 with the exact same results. He had the same sized infarct with mild linus - infarct ischemia. PAST MEDICAL HISTORY: Significant for coronary artery disease, coronary artery bypass surgery in 2008, history of Clements's esophagus, history of prostate cancer, mild aortic stenosis, hypercholesterolemia, and kidney stones. MEDICATIONS: Outpatient medications: 1. Amlodipine 5 mg a day. 2. Cymbalta 60 mg a day. 3. Flomax 0.4 mg a day. 4. Ambien 10 mg one-half tab q.h.s. 5. Simvastatin 5 mg a day. 6. Spironolactone/hydrochlorothiazide 25/25 one-half tab b.i.d. 7. Pantoprazole 40 mg a day. 8. Multivitamin a day. 9. Glucosamine 1 tablet a day. 10. Metoprolol tartrate 12.5 mg b.i.d. 11. Folic acid. 12. Aspirin 81 mg a day. 13. Micardis 80 mg a day. 14. Gabapentin 300 mg 4 times a day. ALLERGIES: He is intolerant of SERTRALINE, FLOVENT, LISINOPRIL/ HYDROCHLOROTHIAZIDE, LEXAPRO. FAMILY HISTORY: Father had a history of a stroke, he also had a history of hypertension. Mother had a history of hypertension. SOCIAL HISTORY: He is . 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 He has 2 children. He smokes a pipe 1 to 2 times a day. Rare alcohol intake. No other drug use. He does get regular exercise. PHYSICAL EXAM: Height is 5 feet 11 inches, weight 207 pounds, temperature 98.6 , heart rate is 66, blood pressure 177/92, respiratory rate is 16. Sclerae are anicteric. Oropharynx is pink without erythema. Carotids are 2+ without bruits. JVD is normal. Thyroid is normal. Cardiac Exam: S1 and S2 without faint 1/6 systolic ejection murmur heard best at the left upper sternal border. PMI is normal. Lungs are clear to auscultation bilaterally with no dullness to percussion. Extremities show no edema. The patient is awake, alert, and oriented. He moves all 4 extremities equally. LABORATORY DATA: Chemistries within normal limits. BUN 19, creatinine 1.1. AST and ALT are within normal limits. Troponins are 0.05 x4. CBC within normal limits. IMPRESSION: This is a 76-year-old gentleman with a history of coronary artery disease who was admitted to the hospital because of chest pressure and a left bundle branch block on his EKG. The patient ruled out for a myocardial infarction. The patient underwent a chemical nuclear stress test today which showed a omojh-ye-twbevhkt area of infarct to his inferolateral wall with mild linus-infarct adhesive ischemia. This is exactly the same pattern as his stress test in 2013. For now my recommendation is the patient stay on his current medications. I do not think any other cardiac testing is necessary. I think the patient is at low risk for significant cardiac event in the near future. Dr. Helton will see the patient in 2 to 3 weeks. CC: Dr. Guerrero Helton; Dr. Kade Ojeda* [id number]/[facility] #: [id number] MTDD
--- NOTE | 2016-09-04 13:52 | DS ---
DISCHARGE SUMMARY: DATE OF ADMISSION: DATE OF DISCHARGE: 09/03/16 ATTENDING PHYSICIAN: Kendall Hooks M.D.* (dictated by Miles Hickey NP). PRIMARY CARE PROVIDER: Dr. Kade Ojeda. CHEMICAL MAKER: Dr. Guerrero Helton. PRIMARY DIAGNOSES: 1. Noncardiac chest pain. 2. Hypertensive urgency. SECONDARY DIAGNOSES: 1. Asthma. 2. Hyperlipidemia. 3. Benign prostatic hyperplasia. 4. Gastroesophageal reflux disease. 5. History of coronary artery disease. 6. Clements's esophagus. CONSULTATIONS WHILE IN THE HOSPITAL: Dr. Jason Henderson with Cardiology. STUDIES WHILE IN THE HOSPITAL: 1. Chest x-ray on 09/02/16. Radiologist's impression: No active cardiopulmonary disease. 2. Cardiac nuclear medicine scan on 09/03/16. Radiologist's impression: Decreased ejection fraction. Fixed defect of the lateral wall with a small defect of the septum, with marginal reversibility suggestive of infarct with marginal ischemia. Assessment: Intermediate risk. Drift Miner's impression: Observation, chest pain, none. Resting ECG abnormal. Left bundle branch block , changes none. Drift Miner's conclusion: Nondiagnostic Lexiscan study by EKG due to resting EKG abnormalities. Nuclear portion to be reported separately by radiologist. In recovery, occasional normally conducted beats. DISCHARGE MEDICATIONS: Continued home medications: 1. Folic acid 1 tablet oral twice daily. 2. Vitamin D3 one capsule oral every evening. 3. Multivitamin 1 tablet oral daily. 4. Acetaminophen 500 mg oral every 4 hours as needed for pain. 5. Protonix 40 mg oral twice daily. 6. Cymbalta 60 mg oral daily. 7. Aspirin 81 mg oral daily. 8. Nitroglycerin 0.4 mg sublingual every 5 minutes as needed for chest pain. 9. Alprazolam 0.25 mg oral every 8 hours as needed for anxiety. 10. Aracely 180 mg oral daily as needed for allergy symptoms. 11. Tamsulosin 0.4 mg oral daily. 12. Alvesco 80 mcg MDI one inhalation daily. 13. Gabapentin 100 mg oral twice daily. 14. Aracely 100 mg oral daily. 15. Levalbuterol 2 puffs inhalation every 4 hours as needed for shortness of breath or wheeze. 16. Metoprolol tartrate 12.5 mg oral twice daily. 17. Spironolactone/hydrochlorothiazide 25/25, 0.5 tab oral twice daily. 18. Amlodipine 5 mg oral daily. 19. Ambien 10 mg oral every evening. 20. Rosuvastatin 5 mg oral daily at bedtime. HISTORY OF PRESENT ILLNESS/HOSPITAL COURSE: Mr. Corona is a 76-year-old male with a past medical history significant for coronary artery disease, status post quadruple heart bypass in 2008, abdominal aortic aneurysm, hypertension, asthma, BPH, who presented to the emergency room with complaints of chest pain. Mr. Corona reports chronic chest pain and discomfort since his quadruple heart bypass; however, he reports that he generally does not notice that discomfort but on the day of admission, the patient went to the park and noticed when getting out of his car that he had felt off. The patient reported just smoking a pipe which occasionally makes him not feel well. The patient reports also feeling lightheaded, headache, nausea. The patient felt that he had not been drinking much water, so he drank some water. He went home, put his groceries away, continued to feel worse, noting left chest wall tightness that was not going away. The patient became worried. He took 4 baby aspirin and had his neighbor check his blood pressure which was found to be 215/114. The patient called his son who helped to make the decision to call EMS. The patient was brought to the emergency room via EMS reporting that the pain resolved when he got here. While in the emergency room, the patient's systolic blood pressure was in the 200s. He was given sublingual nitro. The patient reported that his chest discomfort was almost resolved and that he was back to his baseline chest discomfort. It was also to note that the patient's sublingual nitro had brought his blood pressures down to 160/70. The patient had a troponin of 0.05. EKG is showing a sinus rhythm with a left bundle branch block. The patient's previous EKGs of that showed a sinus rhythm and no bundle branch block. The patient also had a chest x-ray showing no active cardiopulmonary disease. Based on the patient's presentation, Hospitalists were asked to evaluate the patient for admission. While in the hospital, the patient was monitored on telemetry. He was noted to have a left bundle-branch block with a sinus rhythm. The patient's troponins were trended and peaked at 0.06. The patient reports that his chest discomfort returned to his normal baseline of a band-like pressure in his chest. The patient was noted to have hypokalemia today and he received replacement. The patient underwent a nuclear stress test showing an intermediate risk due to a fixed defect of the lateral wall with a small defect of the septum with marginal reversibility suggestive of infarct with marginal ischemia and a decreased ejection fraction. Dr. Henderson with Cardiology consulted on the patient and felt that this stress test was the same as the previous stress test in 2012. During the patient's stay, his blood pressures had improved. They were slightly elevated this afternoon due to the patient missing his morning blood pressure medications and it is to note that the patient's spironolactone and hydrochlorothiazide has been held during his hospital admission. Mr. Corona is stable for discharge to home. PHYSICAL EXAMINATION: Vital signs are as follows: Temperature 98.6, heart rate 59, respiratory rate 16, O2 saturation 98% on room air, blood pressure 177/ 96. DISCHARGE PLAN: Mr. Corona will be discharged to home. Activity as tolerated. He should be on a heart healthy diet. He has been asked to monitor his blood pressures at home and to call his primary care provider if they elevate above where they are. The patient has also been encouraged to take his medications as prescribed. As far as the patient's hypertension, he should be continued on metoprolol and Norvasc in addition to spironolactone and hydrochlorothiazide. I recommend adjusting the patient's antihypertensives if he continues to be hypertensive in the outpatient setting and monitoring his electrolytes. The patient should be seen in followup by his primary care provider by Dr. Yasmin Ojeda. He has an appointment on September 05 at 12 p.m. 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 Helton's office in the morning to make an appointment. The patient has been asked to return to the emergency room for changes in his chest pain or development of shortness of breath. This is a summarized report of a complex medical history and hospital stay. For further details, please see the entire medical record. TIME SPENT: Time for this discharge was 50 minutes, 25 minutes was spent face to face with the patient and son discussing discharge plans and instructions. CONDITION ON DISCHARGE: Stable. Reviewed by MILES HICKEY, IWONA-C 09/12/16 0189 CC: Dr. Kade Ojeda; Dr. Guerrero Helton * [id number]/[facility] #: [id number] NOEL
== END 2016-09-03 17:35 | disposition home or self-care (01) ==
LOC: ED 17:50 → MEDTELE 18:45
PROVIDERS: ADMIT Hospitalist; ATTEND Hospitalist
DX: R07.89 Other chest pain (principal); I16.0 Hypertensive urgency; I44.7 Left bundle-branch block, unspecified; J45.909 Unspecified asthma, uncomplicated; E78.5 Hyperlipidemia, unspecified; N40.0 Benign prostatic hyperplasia without lower urinary tract symptoms; F41.9 Anxiety disorder, unspecified; F32.9 Major depressive disorder, single episode, unspecified; K21.9 Gastro-esophageal reflux disease without esophagitis; I25.10 Atherosclerotic heart disease of native coronary artery without angina pectoris; K22.70 Barrett's esophagus without dysplasia; Z79.899 Other long term (current) drug therapy; Z79.82 Long term (current) use of aspirin; Z88.8 Allergy status to other drugs, medicaments and biological substances; Z87.891 Personal history of nicotine dependence
CPT/HCPCS: 36415; 71010; 78452; 80048; 80053; 81003; 81015; 82550; 82553; 83605; 84484; 85025; 87086; 93005; 93017; 96372; 99284; A9270-GY; A9502; G0378; J0280; J1644; J1650; J2785

== ENCOUNTER 2016-10-26 10:43 | Emergency (ER) | payer MEDICARE, BC ==
[2016-10-26 11:20] VITALS: BP 141/94
[2016-10-26] MEDS ORDERED: Penicillin VK TAB* 250 MG PO ONE (11:37)
--- NOTE | 2016-10-26 11:37 | UC ---
[facility] HPI - HPI Summary HPI Summary: 76 yo male noted dental abscess this AM mild pain dentist on vacation pt planning to visit relatives out of town no f/c - History of Current Complaint Chief Complaint: UCDentalProblem Stated Complaint: TOOTH ACHE Time Seen by Provider: 10/26/16 11:32 Hx Obtained From: Patient Onset/Duration: Sudden Onset, Lasting Hours Severity: Mild Pain Intensity: 2 Pain Scale Used: 0-10 Numeric Aggravating: Nothing Alleviating: Nothing Related History: Previous Dental Care on Same Tooth, Swelling - Allergies/Home Medications Allergies/Adverse Reactions: Allergies Allergy/AdvReac Type Severity Reaction Status Date / Time Pregabalin [From Lyrica] Allergy Intermediate change Verified 03/29/15 07:13 mental status Sertraline [From Zoloft] Allergy Intermediate Dizziness Verified 03/29/15 07:13 Escitalopram [From Lexapro] Allergy Headache Verified 03/29/15 07:13 Fluticasone [From Flovent] Allergy loss of Verified 03/29/15 07:13 voice Lisinopril Allergy with hctz Verified 03/29/15 07:13 constant cough PMH/Surg Hx/FS Hx/Imm Hx Previously Healthy: Yes Endocrine History Of: Denies: Diabetes Cardiovascular History Of: Reports: Hypertension, Myocardial Infarction Denies: Pacemaker/ICD, Congestive Heart Failure Respiratory History Of: Reports: Asthma GI/ History Of: Reports: Kidney Stones, Renal Disease - abnormal gfr Neurological History Of: Reports: TIA - Mild CVA in 2013 Psychological History Of: Reports: Anxiety - Surgical History Surgical History: Yes Surgery Procedure, Year, and Place: Triple A(abdomen surgery), Quadruple bypass with 5 stents ,hernia x3,gallbladder 1972,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/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 - Family History Known Family History: Positive: Cardiac Disease - Social History Alcohol Use: Rare Alcohol Amount: glass of wine a week Substance Use Type: None Smoking Status (MU): Former Smoker - Immunization History Most Recent Influenza Vaccination: 2013 Most Recent Tetanus Shot: unknown Most Recent Pneumonia Vaccination: has had Review of Systems Constitutional: Negative Skin: Negative Eyes: Negative ENT: Dental Pain Respiratory: Negative Cardiovascular: Negative Gastrointestinal: Negative Genitourinary: Negative Motor: Negative Neurovascular: Negative Musculoskeletal: Negative Neurological: Negative Psychological: Negative All Other Systems Reviewed And Are Negative: Yes Physical Exam Triage Information Reviewed: Yes Appearance: Well-Appearing, No Pain Distress, Well-Nourished Vital Signs: Initial Vital Signs Temp 97.0 F 10/26/16 11:17 Pulse 83 10/26/16 11:17 Resp 18 10/26/16 11:17 BP 141/94 10/26/16 11:17 Pulse Ox 96 10/26/16 11:17 Eyes: Positive: Conjunctiva Clear ENT: Negative: Hearing grossly normal, Nasal congestion, Nasal drainage, Trismus , Muffled/hoarse voice Dental: Positive: Abscess @ Neck: Positive: Supple, Nontender, No Lymphadenopathy Respiratory: Positive: Lungs clear, Normal breath sounds, No respiratory distress Cardiovascular: Positive: RRR, No Murmur Musculoskeletal: Positive: ROM Intact, No Edema Neurological: Positive: Alert Psychological Exam: Normal Skin Exam: Normal Dental Complaint Course/Dx - Differential Dx/Diagnosis Provider Diagnoses: dental abscess Discharge - Discharge Plan Condition: Stable Disposition: HOME Prescriptions: Penicillin VK TAB 500 MG(NF) [Penicillin VK 500 mg Tab(NF)] 500 mg PO QID #28 tab Referrals: Kade Ojeda MD [Primary Care Provider] - Additional Instructions: tylenol or aleve if needed for pain see dentist when able recheck for new or worsening symptoms Images Dental: 1 - abscess
== END 2016-10-26 11:45 | disposition home or self-care (01) ==
LOC: UCEAST 10:43
DX: K04.7 Periapical abscess without sinus (principal); I25.2 Old myocardial infarction; Z95.5 Presence of coronary angioplasty implant and graft; Z95.1 Presence of aortocoronary bypass graft; I10 Essential (primary) hypertension; J45.909 Unspecified asthma, uncomplicated; Z87.442 Personal history of urinary calculi; Z86.73 Personal history of transient ischemic attack (TIA), and cerebral infarction without residual deficits; F41.9 Anxiety disorder, unspecified; Z90.49 Acquired absence of other specified parts of digestive tract; Z87.891 Personal history of nicotine dependence
CPT/HCPCS: 99212; A9270-GY; G0463

== ENCOUNTER 2019-05-09 07:09 | Emergency (ER) | payer MEDICARE, BC ==
[2019-05-09 07:21] VITALS: BP 140/82
[2019-05-09] MEDS ORDERED: Silver Nitrate/Potassium Nitr* 1 EA STICK TOPICAL ONE (08:17)
--- NOTE | 2019-05-09 08:36 | UC ---
Epistaxis Nasal HPI - HPI Summary HPI Summary: Pt presents to requesting cautery of left nares. Pt is 78 yo male on 81mg ASA > Pt has has 2 bleeds from left nare over last 10 days. Pt bleed yesterday, packed with tissue and bleeding stopped. Pt states he is going on an out of country trip and is hoping for cautery before his travels. Pt has has this before. States has started humidifying his bedroom, uses vasoline in nares and has avoid blowing. Pt does not use nasal spray. he did use a decongestant for a head cold eariler last week with improvement. No lightheaded. no n/v/d no other complaints. no ENT surgery meds reviewed - History of Current Complaint Chief Complaint: UCGeneralIllness Stated Complaint: NOSE BLEED Time Seen by Provider: 05/09/19 07:51 Hx Obtained From: Patient Pain Intensity: 0 - Allergies/Home Medications Allergies/Adverse Reactions: Allergies Allergy/AdvReac Type Severity Reaction Status Date / Time escitalopram [From Lexapro] Allergy Headache Verified 05/09/19 07:21 fluticasone Allergy loss of Verified 05/09/19 07:21 [From Flovent Diskus] voice lisinopril [From Zestoretic] Allergy Coughing Verified 05/09/19 07:21 pregabalin [From Lyrica] Allergy Altered Verified 05/09/19 07:21 Mental Status sertraline [From Zoloft] Allergy Dizziness Verified 05/09/19 07:21 Home Medications: Home Medications Fexofenadine (NF) [Aracely 180 (NF)] 180 mg PO DAILY 05/09/19 [History Confirmed 05/09/19] Ketoconazole 2 % CREAM (NF) [Nizoral 2% CREAM (NF)] 1 applic TOPICAL DAILY 05/09 [History Confirmed 05/09/19] Nebivolol (NF) [Bystolic (NF)] 5 mg PO DAILY 05/09/19 [History Confirmed ] Rosuvastatin Calcium 5 mg PO DAILY 05/09/19 [History Confirmed 05/09/19] Spironolactone/HCTZ 25-25 MG* [Aldactazide 25-25*] 0.5 tab PO DAILY 05/09/19 [ History Confirmed 05/09/19] Tacrolimus 0.1% OINT (NF) 1 applic TOPICAL BID 05/09/19 [History Confirmed 05/09] Telmisartan (NF) [Micardis (NF)] 40 mg PO DAILY 05/09/19 [History Confirmed ] PMH/Surg Hx/FS Hx/Imm Hx Previously Healthy: Yes - Surgical History Surgical History: Yes Surgery Procedure, Year, and Place: Triple A(abdomen surgery), Quadruple bypass with 5 stents ,hernia x3,gallbladder 1971,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/25/14 [employer] - Family History Known Family History: Positive: Cardiac Disease, Non-Contributory - Social History Occupation: Retired Lives: Alone Alcohol Use: Occasionally Alcohol Amount: glass of wine a week Substance Use Type: None Smoking Status (MU): Former Smoker - Immunization History Most Recent Influenza Vaccination: 2013 Most Recent Tetanus Shot: unknown Most Recent Pneumonia Vaccination: has had Review of Systems All Other Systems Reviewed And Are Negative: Yes Constitutional: Positive: Negative Skin: Positive: Negative Eyes: Positive: Negative ENT: Positive: Other - left nares epistaxis recent- not active Physical Exam - Summary Physical Exam Summary: Vital Signs Reviewed: Yes A+Ox3, no distress Eyes: Conjunctiva Clear, DAVID. EOM intact and full ENT: Hearing grossly normal TM x 2 clear, Nose: pt with tissue in left nares - removed -no clot, slight pink tinged mucous. pt with area of bright red prox septum. suspect recent bleed. no fresh clots appreciated no active bleeding with discussion and pt permission - silver nitrate cautery of area left septum. 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 no other sx vss pt with red area of septu - suspect recent bleed - no active bleed used silver nitrate cautery with pt permission no visible bleedin or wounds after - pt tolerated well reviewed with pt - vasoline at opening of nares after 3 days, saline nasal spray no picking, blowing, rubbing return precautions bleeding control provider ENT contact prn pt comfortable and in agreement with plan mild increased BP - history of same - Differential Dx/Diagnosis Provider Diagnosis: Frequent epistaxis Discharge ED - Sign-Out/Discharge Documenting (check all that apply): Patient Departure All imaging exams completed and their final reports reviewed: No Studies - Discharge Plan Condition: Stable Disposition: HOME Patient Education Materials: Nosebleed (ED) Referrals: Aramis Lopez MD [Primary Care Provider] - Lacho Ortiz MD [Medical Doctor] - Additional Instructions: - no nose blowing, rubbing, picking - continue to put vasoline or antibiotic ointment (polysporin, neosporin) at the opening of your nares - after 3 days, okay to use over the counter saline mist spray - humidify the air where you sleep - contact your doctor, return here or go to the emergency department with questions or concerns - You have also been given the contact information for the ears nose and throat specialists- you may contact them on Saturday for a recheck or with questions - Billing Disposition and Condition Condition: STABLE Disposition: Home
== END 2019-05-09 09:02 | disposition home or self-care (01) ==
LOC: UCEAST 07:09
DX: R04.0 Epistaxis (principal); Z87.891 Personal history of nicotine dependence; Z95.5 Presence of coronary angioplasty implant and graft; Z88.8 Allergy status to other drugs, medicaments and biological substances
CPT/HCPCS: 30901; 99212; A9270-GY; G0463

== ENCOUNTER 2021-03-29 20:04 | Observation (INO) ==
[2021-03-29] MEDS ORDERED: Al Hydrox/Mg Hydrox/Simet LIQ 30 ML UDC PO ONE (21:40)
[2021-03-29] MEDS ORDERED: NS 0.9% 1000 ml BAG 1,000 ML IV ONE (21:40)
[2021-03-29 22:17] LABS: ABS Lymphocytes 0.6 10^3/ul (1.0-4.8); ABS Monocytes 0.4 10^3/ul (0-0.8); ABS Neutrophils 6.9 10^3/ul (1.5-7.7); Eosinophil % 0.4 %; Hematocrit 34 % (42-52); Lymphocyte % 7.1 %; Mean Corpuscular HGB Conc 35 g/dL (31-36); Mean Corpuscular Hemoglobin 33 pg (27-31); Mean Corpuscular Volume 94 fL (80-94); Mean Platelet Volume 7.3 fL (7.4-10.4); Platelet Count 185 10^3/uL (150-450); Red Blood Count 3.66 10^6 /uL (4.18-5.48); Red Cell Distribution Width 14 % (10-15)
[2021-03-29 22:35] LABS: ALT 24 U/L (7-52); AST 20 U/L (13-39); Albumin 4.2 g/dL (3.2-5.2); Albumin/Globulin Ratio 1.5 (1-3); Alkaline Phosphatase 37 U/L (35-149); Anion Gap 7 mmol/L (2-11); Blood Urea Nitrogen 24 mg/dL (6-24); CO2 Carbon Dioxide 25 mmol/L (22-32); Calcium 9.3 mg/dL (8.6-10.3); Chloride 104 mmol/L (101-111); EGFR African American 54.2 (>60); EGFR Non-African American 44.8 (>60); Globulin 2.8 g/dL (2-4); Glucose 130 mg/dL (70-100); Magnesium 2.1 mg/dL (1.9-2.7); Potassium 4.6 mmol/L (3.5-5.0); Sodium 136 mmol/L (135-145)
[2021-03-30 02:03] LABS: Troponin I 0.26 ng/mL (<0.03)
[2021-03-30] MEDS ORDERED: Nitro 2% OINT (Nitroglycerin) 1 INCH/PAK TOPICAL ONE ×2 (03:50)
[2021-03-30] MEDS ORDERED: Levalbuterol HFA INHALER MDI INH PRN (03:51)
[2021-03-30 04:49] LABS: Blood Urea Nitrogen 24 mg/dL (6-24); Cholesterol 114 mg/dL; EGFR African American 61.8 (>60); HDL Cholesterol 30.2 mg/dL; LDL Cholesterol 55 mg/dL; Triglycerides 146 mg/dL
[2021-03-30 04:51] LABS: Rapid COVID-19 Molecular Undetected (Undetected)
[2021-03-30 05:14] LABS: Troponin I 0.37 ng/mL (<0.03)
[2021-03-30] MEDS: Heparin DRIP 25,000 UNITS BAG 25,000 UNITS/500 ML BAG IV SCH (05:48)
[2021-03-30] MEDS: Heparin 5000 UNITS/ML 1 mL VIAL IV SCH ×2 (05:54→12:37)
[2021-03-30 06:19] LABS: ABS Eosinophils 0.1 10^3/ul (0-0.6); ABS Lymphocytes 1.4 10^3/ul (1.0-4.8); ABS Monocytes 0.7 10^3/ul (0-0.8); ABS Neutrophils 5.1 10^3/ul (1.5-7.7); Eosinophil % 1.9 %; Hematocrit 34 % (42-52); Hemoglobin 11.8 g/dL (14.0-18.0); Lymphocyte % 19.1 %; Mean Corpuscular HGB Conc 34 g/dL (31-36); Mean Corpuscular Hemoglobin 33 pg (27-31); Mean Corpuscular Volume 95 fL (80-94); Mean Platelet Volume 7.3 fL (7.4-10.4); Platelet Count 175 10^3/uL (150-450); Red Blood Count 3.63 10^6 /uL (4.18-5.48); Red Cell Distribution Width 14 % (10-15); White Blood Count 7.4 10^3/uL (3.5-10.8)
[2021-03-30 06:55] LABS: Troponin I 0.46 ng/mL (<0.03)
[2021-03-30] MEDS: Mometasone/Formoter 100/5 MDI INH SCH ×2 (07:30→20:12)
[2021-03-30] MEDS: DULoxetine DR 60 mg CAP PO SCH (08:36)
[2021-03-30] MEDS: Spironolactone/HCTZ 25-25 mg PO SCH (08:37)
[2021-03-30] MEDS ORDERED: Cholecalciferol (VIT D3) 1,000 unit TAB PO SCH (09:00)
[2021-03-30] MEDS: Tacrolimus 0.1% OINT (NF) 1 TUBE TOPICAL SCH ×2 (09:30→20:22)
[2021-03-30] MEDS: CMC:Ketoconazole 2 % CREAM (NF) 30 GM TUBE TOPICAL SCH (09:58)
[2021-03-30 10:40] LABS: Troponin I 0.38 ng/mL (<0.03)
[2021-03-30 14:53] LABS: Urine Benzodiazepine Screen None Detected (None Detect); Urine Cannabinoids Screen Presumptive Positive (None Detect); Urine Opiates Screen None Detected (None Detect)
[2021-03-30] MEDS ORDERED: Perflutren Lipid Microsphere 3 ML VIAL ONE (15:46)
[2021-03-31] MEDS: Heparin DRIP 25,000 UNITS BAG 25,000 UNITS/500 ML BAG IV SCH (06:29)
[2021-03-31 07:30] VITALS: BP 135/66
[2021-03-31] MEDS: Tacrolimus 0.1% OINT (NF) 1 TUBE TOPICAL SCH (08:10)
[2021-03-31] MEDS: Spironolactone/HCTZ 25-25 mg PO SCH (08:14)
[2021-03-31] MEDS: DULoxetine DR 60 mg CAP PO SCH (08:18)
[2021-03-31] MEDS: CMC:Ketoconazole 2 % CREAM (NF) 30 GM TUBE TOPICAL SCH (08:22)
[2021-03-31] MEDS: Mometasone/Formoter 100/5 MDI INH SCH (08:57)
[2021-03-31 09:15] LABS: ABS Basophils 0.1 10^3/ul (0-0.2); ABS Eosinophils 0.2 10^3/ul (0-0.6); ABS Lymphocytes 1.2 10^3/ul (1.0-4.8); ABS Monocytes 0.6 10^3/ul (0-0.8); ABS Neutrophils 3.6 10^3/ul (1.5-7.7); Eosinophil % 4.2 %; Hematocrit 37 % (42-52); Hemoglobin 12.5 g/dL (14.0-18.0); Lymphocyte % 20.7 %; Mean Corpuscular HGB Conc 34 g/dL (31-36); Mean Corpuscular Hemoglobin 32 pg (27-31); Mean Corpuscular Volume 95 fL (80-94); Mean Platelet Volume 7.4 fL (7.4-10.4); Platelet Count 166 10^3/uL (150-450); Red Blood Count 3.91 10^6 /uL (4.18-5.48); Red Cell Distribution Width 14 % (10-15); White Blood Count 5.6 10^3/uL (3.5-10.8)
[2021-03-31 09:30] LABS: Calcium 9.3 mg/dL (8.6-10.3); EGFR African American 58.7 (>60); EGFR Non-African American 48.5 (>60); Potassium 4.5 mmol/L (3.5-5.0)
[2021-03-31] MEDS ORDERED: Regadenoson 0.4 MG/5 ML SYRINGE ONE (12:00)
== END 2021-03-31 15:10 | disposition home or self-care (01) ==
LOC: ED 20:04 → MEDTELE 20:04
PROVIDERS: ADMIT Internal Medicine; ATTEND Internal Medicine

== ENCOUNTER 2021-04-19 10:52 | Inpatient (IN) ==
[2021-04-19] MEDS ORDERED: NS 0.9% 1000 ml BAG 1,000 ML IV ONE (11:37)
[2021-04-19] MEDS ORDERED: Morphine 2 MG/ML SYRINGE IV PRN (11:37)
[2021-04-19 12:11] LABS: ABS Basophils 0.1 10^3/ul (0-0.2); ABS Eosinophils 0.1 10^3/ul (0-0.6); ABS Lymphocytes 1.1 10^3/ul (1.0-4.8); ABS Monocytes 0.6 10^3/ul (0-0.8); ABS Neutrophils 4.3 10^3/ul (1.5-7.7); Eosinophil % 2.4 %; Hematocrit 34 % (42-52); Hemoglobin 11.6 g/dL (14.0-18.0); Lymphocyte % 17.5 %; Mean Corpuscular HGB Conc 34 g/dL (31-36); Mean Corpuscular Hemoglobin 32 pg (27-31); Mean Corpuscular Volume 94 fL (80-94); Mean Platelet Volume 7.2 fL (7.4-10.4); Platelet Count 163 10^3/uL (150-450); Red Blood Count 3.61 10^6 /uL (4.18-5.48); Red Cell Distribution Width 13 % (10-15); White Blood Count 6.2 10^3/uL (3.5-10.8)
[2021-04-19] MEDS ORDERED: Heparin DRIP 25,000 UNITS BAG 25,000 UNITS/500 ML BAG ONE (12:22)
[2021-04-19] MEDS: Heparin DRIP 25,000 UNITS BAG 25,000 UNITS/500 ML BAG IV SCH (12:28)
[2021-04-19] MEDS: Heparin 5000 UNITS/ML 1 mL VIAL IV SCH (12:29)
[2021-04-19 12:30] LABS: ALT 17 U/L (7-52); AST 15 U/L (13-39); Albumin 4.1 g/dL (3.2-5.2); Albumin/Globulin Ratio 1.6 (1-3); Alkaline Phosphatase 34 U/L (35-149); Anion Gap 7 mmol/L (2-11); Blood Urea Nitrogen 27 mg/dL (6-24); CO2 Carbon Dioxide 24 mmol/L (22-32); Chloride 103 mmol/L (101-111); Globulin 2.5 g/dL (2-4); Glucose 93 mg/dL (70-100); Potassium 4.7 mmol/L (3.5-5.0); Sodium 134 mmol/L (135-145); Total Protein 6.6 g/dL (6.4-8.9)
[2021-04-19 12:31] LABS: Troponin I 0.01 ng/mL (<0.03)
[2021-04-19 13:06] LABS: TSH Ultra Thyroid Stim Horm 1.27 mcIU/mL (0.34-5.60)
[2021-04-19 15:28] LABS: Rapid COVID-19 Molecular Undetected (Undetected)
[2021-04-19 17:12] LABS: % Iron Saturation 20 % (15-55); Iron 64 ug/dL (50-212); Total Iron Binding Capacity 316 mcg/dL (250-450); Transferrin 226 mg/dL (203-362); Unsaturated Iron Binding < 301 ug/dL
[2021-04-19 17:19] LABS: Ferritin 115.9 ng/mL (24-336)
[2021-04-19 18:53] LABS: ABS Basophils 0.1 10^3/ul (0-0.2); ABS Eosinophils 0.2 10^3/ul (0-0.6); ABS Lymphocytes 1.5 10^3/ul (1.0-4.8); ABS Monocytes 0.3 10^3/ul (0-0.8); ABS Neutrophils 3.6 10^3/ul (1.5-7.7); Eosinophil % 3.8 %; Hematocrit 34 % (42-52); Hemoglobin 11.8 g/dL (14.0-18.0); Lymphocyte % 26.4 %; Mean Corpuscular HGB Conc 35 g/dL (31-36); Mean Corpuscular Hemoglobin 32 pg (27-31); Mean Corpuscular Volume 93 fL (80-94); Mean Platelet Volume 7.4 fL (7.4-10.4); Platelet Count 154 10^3/uL (150-450); Red Blood Count 3.65 10^6 /uL (4.18-5.48); Red Cell Distribution Width 14 % (10-15); White Blood Count 5.6 10^3/uL (3.5-10.8)
[2021-04-19 19:10] LABS: Troponin I 0.01 ng/mL (<0.03)
[2021-04-20 06:37] LABS: ABS Eosinophils 0.2 10^3/ul (0-0.6); ABS Lymphocytes 1.1 10^3/ul (1.0-4.8); ABS Monocytes 0.4 10^3/ul (0-0.8); ABS Neutrophils 3.3 10^3/ul (1.5-7.7); Eosinophil % 4.3 %; Hematocrit 36 % (42-52); Hemoglobin 12.3 g/dL (14.0-18.0); Lymphocyte % 21.4 %; Mean Corpuscular HGB Conc 35 g/dL (31-36); Mean Corpuscular Hemoglobin 33 pg (27-31); Mean Corpuscular Volume 94 fL (80-94); Mean Platelet Volume 7.4 fL (7.4-10.4); Platelet Count 147 10^3/uL (150-450); Red Blood Count 3.77 10^6 /uL (4.18-5.48); Red Cell Distribution Width 13 % (10-15); White Blood Count 5.2 10^3/uL (3.5-10.8)
[2021-04-20 06:52] LABS: Calcium 9.4 mg/dL (8.6-10.3); Potassium 4.2 mmol/L (3.5-5.0)
[2021-04-20 07:58] LABS: Hematocrit for Retic CNT 36 % (42-52); RBC Retic Count 3.78 10^6/uL (4.18-5.48)
[2021-04-20] MEDS: DULoxetine DR 60 mg CAP PO SCH (08:35)
[2021-04-20] MEDS: Spironolactone/HCTZ 25-25 mg PO SCH (08:35)
[2021-04-20] MEDS ORDERED: Lactated Ringers 1000 ml BAG 1,000 ML IV ONE (18:51)
[2021-04-21] MEDS ORDERED: Lactated Ringers 1000 ml BAG 1,000 ML IV ONE ×2
[2021-04-21 06:10] LABS: ABS Basophils 0.1 10^3/ul (0-0.2); ABS Eosinophils 0.2 10^3/ul (0-0.6); ABS Lymphocytes 1.3 10^3/ul (1.0-4.8); ABS Monocytes 0.6 10^3/ul (0-0.8); ABS Neutrophils 3.7 10^3/ul (1.5-7.7); Eosinophil % 3.8 %; Hematocrit 36 % (42-52); Hemoglobin 12.3 g/dL (14.0-18.0); Lymphocyte % 21.9 %; Mean Corpuscular HGB Conc 34 g/dL (31-36); Mean Corpuscular Hemoglobin 32 pg (27-31); Mean Corpuscular Volume 94 fL (80-94); Mean Platelet Volume 7.4 fL (7.4-10.4); Nucleated Red Blood Cells % 0.1; Platelet Count 169 10^3/uL (150-450); Red Blood Count 3.82 10^6 /uL (4.18-5.48); Red Cell Distribution Width 13 % (10-15); White Blood Count 5.8 10^3/uL (3.5-10.8)
[2021-04-21] MEDS: Heparin DRIP 25,000 UNITS BAG 25,000 UNITS/500 ML BAG IV SCH (07:26)
[2021-04-21] MEDS: Spironolactone/HCTZ 25-25 mg PO SCH (09:18)
[2021-04-21] MEDS: DULoxetine DR 60 mg CAP PO SCH (09:18)
[2021-04-22] MEDS: Heparin DRIP 25,000 UNITS BAG 25,000 UNITS/500 ML BAG IV SCH (03:23)
[2021-04-22 09:03] LABS: ABS Eosinophils 0.3 10^3/ul (0-0.6); ABS Lymphocytes 1.5 10^3/ul (1.0-4.8); ABS Monocytes 0.6 10^3/ul (0-0.8); ABS Neutrophils 3.6 10^3/ul (1.5-7.7); Eosinophil % 4.5 %; Hematocrit 38 % (42-52); Lymphocyte % 24.6 %; Mean Corpuscular HGB Conc 34 g/dL (31-36); Mean Corpuscular Hemoglobin 32 pg (27-31); Mean Corpuscular Volume 94 fL (80-94); Mean Platelet Volume 7.3 fL (7.4-10.4); Nucleated Red Blood Cells % 0.1; Platelet Count 173 10^3/uL (150-450); Red Blood Count 4.03 10^6 /uL (4.18-5.48); Red Cell Distribution Width 14 % (10-15); White Blood Count 6.1 10^3/uL (3.5-10.8)
[2021-04-22 09:18] LABS: Magnesium 1.9 mg/dL (1.9-2.7); Potassium 4.2 mmol/L (3.5-5.0)
[2021-04-22] MEDS: DULoxetine DR 60 mg CAP PO SCH (09:56)
[2021-04-22] MEDS: Spironolactone/HCTZ 25-25 mg PO SCH (09:58)
[2021-04-22] MEDS: Aspirin EC 81 mg TAB.EC (enteric coated) PO SCH (17:40)
[2021-04-22] MEDS: Heparin 5000 UNITS/ML 1 mL VIAL IV SCH (17:50)
[2021-04-23] MEDS: Heparin DRIP 25,000 UNITS BAG 25,000 UNITS/500 ML BAG IV SCH ×2 (00:46→23:00)
[2021-04-23] MEDS: Aspirin EC 81 mg TAB.EC (enteric coated) PO SCH (09:09)
[2021-04-23] MEDS: DULoxetine DR 60 mg CAP PO SCH (09:09)
[2021-04-23] MEDS: Spironolactone/HCTZ 25-25 mg PO SCH (09:09)
[2021-04-23 09:22] LABS: ABS Basophils 0.1 10^3/ul (0-0.2); ABS Eosinophils 0.3 10^3/ul (0-0.6); ABS Lymphocytes 1.6 10^3/ul (1.0-4.8); ABS Monocytes 0.7 10^3/ul (0-0.8); ABS Neutrophils 4.4 10^3/ul (1.5-7.7); Eosinophil % 3.8 %; Hematocrit 38 % (42-52); Hemoglobin 13.1 g/dL (14.0-18.0); Lymphocyte % 22.2 %; Mean Corpuscular HGB Conc 35 g/dL (31-36); Mean Corpuscular Hemoglobin 33 pg (27-31); Mean Corpuscular Volume 94 fL (80-94); Mean Platelet Volume 7.5 fL (7.4-10.4); Platelet Count 177 10^3/uL (150-450); Red Blood Count 4.05 10^6 /uL (4.18-5.48); Red Cell Distribution Width 14 % (10-15)
[2021-04-23] MEDS: Heparin 5000 UNITS/ML 1 mL VIAL IV SCH (15:23)
[2021-04-24 04:54] LABS: ABS Basophils 0.1 10^3/ul (0-0.2); ABS Eosinophils 0.3 10^3/ul (0-0.6); ABS Lymphocytes 1.3 10^3/ul (1.0-4.8); ABS Monocytes 0.7 10^3/ul (0-0.8); ABS Neutrophils 4.4 10^3/ul (1.5-7.7); Eosinophil % 4.8 %; Hematocrit 37 % (42-52); Hemoglobin 12.7 g/dL (14.0-18.0); Lymphocyte % 18.6 %; Mean Corpuscular HGB Conc 34 g/dL (31-36); Mean Corpuscular Hemoglobin 32 pg (27-31); Mean Corpuscular Volume 94 fL (80-94); Mean Platelet Volume 7.2 fL (7.4-10.4); Platelet Count 171 10^3/uL (150-450); Red Blood Count 3.97 10^6 /uL (4.18-5.48); Red Cell Distribution Width 14 % (10-15); White Blood Count 6.8 10^3/uL (3.5-10.8)
[2021-04-24] MEDS ORDERED: NS 0.9% 1000 ml BAG 1,000 ML IV SCH ×2 (05:00→14:30)
[2021-04-24] MEDS: Aspirin EC 81 mg TAB.EC (enteric coated) PO SCH (08:16)
[2021-04-24] MEDS: DULoxetine DR 60 mg CAP PO SCH (08:17)
[2021-04-24] MEDS: Spironolactone/HCTZ 25-25 mg PO SCH (08:18)
[2021-04-24] MEDS ORDERED: fentaNYL 100 mcg/2 ml 50 MCG/ML VIAL ONE (11:23)
[2021-04-24] MEDS ORDERED: Lidocaine 1% VIAL 10 MG/ML VIAL ONE (11:23)
[2021-04-24] MEDS ORDERED: Midazolam 5 mg/5 ml VIAL 1 mg/ml 5 ml VIAL (5 mg) ONE (11:23)
[2021-04-24] MEDS ORDERED: Iohexol 350 (CONTRAST) 200 ML MDV IV ONE (11:24)
[2021-04-24] MEDS ORDERED: Heparin 2 UNITS/ML IVPREMIX 2,000 UNIT/1,000 ML BAG IV ONE (11:27)
[2021-04-24] MEDS ORDERED: Morphine 10 MG/ML VIAL (1 ml) ONE (11:51)
[2021-04-24] MEDS ORDERED: Heparin 1,000 UNIT/ML 10 ml (10,000 UNITS) CATHLAB/DIALYSIS ONE (13:02)
[2021-04-24] MEDS ORDERED: VERAPAMIL 2.5 MG/ML 2 ML VIAL ** 5 mg/2 ml ONE (13:03)
[2021-04-24] MEDS ORDERED: nitroGLYCERIN DRIP 25,000 MCG/250 ML BTL ONE (13:03)
[2021-04-24] MEDS ORDERED: Heparin 2 UNITS/ML IVPREMIX 1,000 UNIT/500 ML BAG IV ONE (13:28)
[2021-04-25 07:44] LABS: Calcium 9.7 mg/dL (8.6-10.3); Magnesium 1.9 mg/dL (1.9-2.7); Potassium 4.5 mmol/L (3.5-5.0)
[2021-04-25] MEDS: Aspirin EC 81 mg TAB.EC (enteric coated) PO SCH (08:31)
[2021-04-25] MEDS: DULoxetine DR 60 mg CAP PO SCH (08:32)
[2021-04-25] MEDS: Spironolactone/HCTZ 25-25 mg PO SCH (08:32)
[2021-04-25 11:52] VITALS: BP 125/78
== END 2021-04-25 13:30 | disposition home or self-care (01) | DRG 287 ==
LOC: MEDTELE 10:52 → ED 10:52 → MEDTELE 16:32 → SUATTDRO 04-21 17:14
PROVIDERS: ADMIT Internal Medicine; ATTEND Student in an Organized Health Care Education/Training Program

== ENCOUNTER 2022-11-23 00:12 | Inpatient (IN) ==
[2022-11-23] MEDS ORDERED: Morphine 4 MG/ML VIAL (1 ml) IV ONE ×5 (00:25→12:28)
[2022-11-23 00:51] LABS: INR 1.09 (0.88-1.18)
[2022-11-23 00:52] LABS: ABS Lymphocytes 0.4 10^3/uL (1.0-4.8); ABS Monocytes 0.3 10^3/uL (0.0-1.1); ABS Neutrophils 8.8 10^3/uL (1.5-7.6); ABS Nucleated RBC 0.01 10^3/ul; Eosinophil % 0.1 %; Hematocrit 41.5 % (38-53); Hemoglobin 14.5 g/dL (13.2-16.3); Lymphocyte % 4.6 %; Mean Corpuscular Hgb Conc 34.9 g/dL (31-36); Mean Corpuscular Volume 91.7 fL (80-97); Mean Platelet Volume 7.7 fL (7.5-11.2); Nucleated Red Blood Cells % 0.1 /100 WBC (0.0-0.4); Platelet Count 195 10^3/uL (150-450); Red Blood Count 4.53 10^6/uL (4.06-5.63); Red Cell Distribution Width 14.6 % (12-17); White Blood Count 9.6 10^3/uL (3.6-10.2)
[2022-11-23 01:04] LABS: High Sens Troponin Baseline 12 pg/mL (<20)
[2022-11-23 01:24] LABS: Albumin 4.1 g/dL (3.2-5.2); CO2 Carbon Dioxide 24 mmol/L (22-32); Calcium 8.7 mg/dL (8.6-10.3); Chloride 100 mmol/L (101-111); Sodium 134 mmol/L (135-145)
[2022-11-23 01:31] LABS: ALT 20 U/L (7-52); Albumin/Globulin Ratio 1.5 (1-3); Alkaline Phosphatase 39 U/L (35-149); Blood Urea Nitrogen 19 mg/dL (6-24); Creatinine, Serum 1.24 mg/dL (0.67-1.17); Globulin 2.7 g/dL (2-4); Glucose 130 mg/dL (70-100); Lipase 13 U/L (11.0-82.0); Total Protein 6.8 g/dL (6.4-8.9); eGFR CKD-EPI 57.3 (>60)
[2022-11-23 01:33] LABS: Anion Gap 10 mmol/L (2-16)
[2022-11-23 01:51] LABS: Potassium Redraw 3.9 mmol/L (3.5-5.0)
[2022-11-23] MEDS ORDERED: Iodixanol (CONTRAST) 320 MG/ML 100 ML SDV IV ONE (02:54)
[2022-11-23] MEDS ORDERED: NS 0.9% 1000 ml BAG 2,000 ML IV ONE (05:09)
[2022-11-23] MEDS ORDERED: Ondansetron 4 mg VIAL 2 MG/ML 2 ml VIAL IV ONE (07:42)
[2022-11-23 09:00] LABS: High Sensitivity Troponin 1 Hr 23 pg/mL (<20)
[2022-11-23] MEDS: Pantoprazole VIAL 40 MG VIAL IV SCH (09:51)
[2022-11-23] MEDS: Lactated Ringers 1000 ml BAG 1,000 ML IV SCH ×3 (10:12→18:40)
[2022-11-23 13:24] LABS: Urine Appearance Clear; Urine Bacteria Absent (Absent); Urine Bilirubin Negative (Negative); Urine Blood Negative (Negative); Urine Color Yellow; Urine Glucose 3+(>=500 mg/dL) (Negative); Urine Ketones Trace (Negative); Urine Nitrite Negative (Negative); Urine Protein 2+(100 mg/dL) (Negative); Urine Red Blood Cell Trace(0-2/hpf) (Absent); Urine Specific Gravity > 1.060 (1.002-1.030); Urine Squamous Epithelial Cell Present (Absent); Urine Urobilinogen Negative (Negative); Urine White Blood Cell Absent (Absent)
[2022-11-23] MEDS ORDERED: Morphine 2 MG/ML SYRINGE IV PRN (15:19)
[2022-11-23] MEDS: Enoxaparin 40 MG/0.4 ML SYR SUBCUT SCH (17:39)
[2022-11-23] MEDS: HYDROmorphone 0.5 MG/0.5 ML SYRINGE IV SLOW PU PRN (18:36)
[2022-11-23] MEDS: Acetaminophen IV 1 GM/100ML 1,000 MG/100 ML BAG IV PRN (21:31)
[2022-11-24] MEDS: HYDROmorphone 0.5 MG/0.5 ML SYRINGE IV SLOW PU PRN ×4 (00:28→23:27)
[2022-11-24] MEDS: Lactated Ringers 1000 ml BAG 1,000 ML IV SCH ×2 (01:42→08:53)
[2022-11-24 06:20] LABS: ABS Eosinophils 0.1 10^3/uL (0.0-0.5); ABS Lymphocytes 0.5 10^3/uL (1.0-4.8); ABS Monocytes 0.9 10^3/uL (0.0-1.1); ABS Neutrophils 8.8 10^3/uL (1.5-7.6); Hematocrit 42.3 % (38-53); Hemoglobin 14.5 g/dL (13.2-16.3); Lymphocyte % 4.6 %; Mean Corpuscular Hemoglobin 31.6 pg (27-33); Mean Corpuscular Hgb Conc 34.2 g/dL (31-36); Mean Corpuscular Volume 92.2 fL (80-97); Mean Platelet Volume 7.5 fL (7.5-11.2); Platelet Count 206 10^3/uL (150-450); Red Blood Count 4.59 10^6/uL (4.06-5.63); Red Cell Distribution Width 14.8 % (12-17); White Blood Count 10.3 10^3/uL (3.6-10.2)
[2022-11-24 07:07] LABS: Calcium 9.3 mg/dL (8.6-10.3); Creatinine, Serum 1.05 mg/dL (0.67-1.17); Potassium 4.1 mmol/L (3.5-5.0)
[2022-11-24] MEDS: Pantoprazole VIAL 40 MG VIAL IV SCH (08:41)
[2022-11-24] MEDS ORDERED: HYDROmorphone 0.5 MG/0.5 ML SYRINGE IV SLOW PU PRN (09:13)
[2022-11-24 09:33] LABS: Magnesium 1.9 mg/dL (1.9-2.7); Phosphorus 4.5 mg/dL (2.5-5.0)
[2022-11-24] MEDS ORDERED: Bupivacaine 0.25% EPI 200,000 30 ML SDV ONE (10:11)
[2022-11-24] MEDS ORDERED: Lidocaine 2% PF 5 ML VIAL ONE (10:39)
[2022-11-24] MEDS ORDERED: Dexmedetomidine 200 mcg/2 ml 2 ml VIAL (200 mcg) ONE (10:39)
[2022-11-24] MEDS ORDERED: Dexamethasone IV 4 MG/ML VIAL 1 ml VIAL ONE (10:39)
[2022-11-24] MEDS ORDERED: Propofol 10 MG/ML 20 ML BTL ONE (10:39)
[2022-11-24] MEDS ORDERED: Rocuronium 50 mg VIAL 10 mg/ml 5 ml VIAL (50 mg) ONE ×2 (10:41→12:54)
[2022-11-24] MEDS ORDERED: Sodium Chloride 0.9% 10 ML ONE (10:52)
[2022-11-24] MEDS ORDERED: ceFAZolin 2 GM in NS PREMIX 2 GM/100 ML BAG IVPB ONE (11:03)
[2022-11-24] MEDS ORDERED: HYDROmorphone 0.5 MG/0.5 ML SYRINGE ONE (12:58)
[2022-11-24] MEDS ORDERED: Acetaminophen IV 1 GM/100ML 1,000 MG/100 ML BAG IV ONE (12:58)
[2022-11-24] MEDS ORDERED: Bupivacaine 0.25% SDV PF 10 ML VIAL INJ ONE ×2 (13:23→13:24)
[2022-11-24] MEDS ORDERED: Ondansetron 4 mg VIAL 2 MG/ML 2 ml VIAL IV PRN (14:10)
[2022-11-24] MEDS ORDERED: Naloxone 0.4 mg VIAL 0.4 mg/ml 1 ml VIAL IV PRN (14:10)
[2022-11-24] MEDS ORDERED: HYDROmorphone 1 MG/1 ML SYRINGE IV PRN (14:10)
[2022-11-24] MEDS: Enoxaparin 40 MG/0.4 ML SYR SUBCUT SCH (18:55)
[2022-11-24] MEDS ORDERED: HYDROmorphone 1 MG/1 ML SYRINGE IV SLOW PU PRN (19:00)
[2022-11-25] MEDS: HYDROmorphone 0.5 MG/0.5 ML SYRINGE IV SLOW PU PRN ×3 (02:31→23:24)
[2022-11-25] MEDS: Lactated Ringers 1000 ml BAG 1,000 ML IV SCH ×2 (05:27→17:31)
[2022-11-25 06:45] LABS: ABS Eosinophils 0.1 10^3/uL (0.0-0.5); ABS Monocytes 1.1 10^3/uL (0.0-1.1); ABS Neutrophils 6.5 10^3/uL (1.5-7.6); Eosinophil % 1.1 %; Hematocrit 39.2 % (38-53); Hemoglobin 13.2 g/dL (13.2-16.3); Lymphocyte % 11.3 %; Mean Corpuscular Hemoglobin 31.4 pg (27-33); Mean Corpuscular Hgb Conc 33.7 g/dL (31-36); Mean Corpuscular Volume 93.4 fL (80-97); Mean Platelet Volume 7.8 fL (7.5-11.2); Platelet Count 173 10^3/uL (150-450); Red Cell Distribution Width 15.1 % (12-17); White Blood Count 8.7 10^3/uL (3.6-10.2)
[2022-11-25 07:08] LABS: Calcium 8.5 mg/dL (8.6-10.3); Creatinine, Serum 0.99 mg/dL (0.67-1.17); Magnesium 1.9 mg/dL (1.9-2.7); Phosphorus 2.8 mg/dL (2.5-5.0); Potassium 3.9 mmol/L (3.5-5.0); eGFR CKD-EPI 75.1 (>60)
[2022-11-25] MEDS: Pantoprazole VIAL 40 MG VIAL IV SCH (08:34)
[2022-11-25] MEDS ORDERED: Polyethylene Glycol 3350 17 GM PACKET PO PRN (10:39)
[2022-11-25] MEDS: DULoxetine DR 60 mg CAP PO SCH (11:53)
[2022-11-25] MEDS: Acetaminophen IV 1 GM/100ML 1,000 MG/100 ML BAG IV PRN ×2 (13:54→23:19)
[2022-11-25] MEDS: Enoxaparin 40 MG/0.4 ML SYR SUBCUT SCH (14:01)
[2022-11-26 06:11] LABS: ABS Eosinophils 0.2 10^3/uL (0.0-0.5); ABS Lymphocytes 0.8 10^3/uL (1.0-4.8); ABS Monocytes 0.9 10^3/uL (0.0-1.1); ABS Neutrophils 5.3 10^3/uL (1.5-7.6); ABS Nucleated RBC 0.01 10^3/ul; Eosinophil % 2.7 %; Hematocrit 38.1 % (38-53); Hemoglobin 12.8 g/dL (13.2-16.3); Lymphocyte % 11.1 %; Mean Corpuscular Hemoglobin 31.4 pg (27-33); Mean Corpuscular Hgb Conc 33.6 g/dL (31-36); Mean Corpuscular Volume 93.4 fL (80-97); Mean Platelet Volume 7.7 fL (7.5-11.2); Nucleated Red Blood Cells % 0.1 /100 WBC (0.0-0.4); Platelet Count 147 10^3/uL (150-450); Red Blood Count 4.08 10^6/uL (4.06-5.63); White Blood Count 7.2 10^3/uL (3.6-10.2)
[2022-11-26 06:36] LABS: Calcium 8.2 mg/dL (8.6-10.3); Creatinine, Serum 0.85 mg/dL (0.67-1.17); Potassium 3.4 mmol/L (3.5-5.0); eGFR CKD-EPI 85.7 (>60)
[2022-11-26] MEDS: Pantoprazole VIAL 40 MG VIAL IV SCH (07:46)
[2022-11-26] MEDS: DULoxetine DR 60 mg CAP PO SCH (07:46)
[2022-11-26] MEDS: HYDROmorphone 0.5 MG/0.5 ML SYRINGE IV SLOW PU PRN (07:46)
[2022-11-26] MEDS: Lactated Ringers 1000 ml BAG 1,000 ML IV SCH (07:48)
[2022-11-26] MEDS: KCL 20 MEQ/100 ML IVPREMIX 20 MEQ/100 ML BAG IV SCH ×2 (08:57→12:05)
[2022-11-26] MEDS: Enoxaparin 40 MG/0.4 ML SYR SUBCUT SCH (12:07)
[2022-11-26] MEDS: Acetaminophen IV 1 GM/100ML 1,000 MG/100 ML BAG IV PRN (22:17)
[2022-11-27] MEDS: Ondansetron 4 mg VIAL 2 MG/ML 2 ml VIAL IV PRN (00:49)
[2022-11-27] MEDS: HYDROmorphone 0.5 MG/0.5 ML SYRINGE IV SLOW PU PRN ×2 (01:34→22:21)
[2022-11-27 06:16] LABS: ABS Eosinophils 0.1 10^3/uL (0.0-0.5); ABS Lymphocytes 0.7 10^3/uL (1.0-4.8); ABS Monocytes 0.8 10^3/uL (0.0-1.1); Eosinophil % 1.1 %; Hematocrit 37.2 % (38-53); Hemoglobin 12.8 g/dL (13.2-16.3); Mean Corpuscular Hemoglobin 31.4 pg (27-33); Mean Corpuscular Hgb Conc 34.3 g/dL (31-36); Mean Corpuscular Volume 91.4 fL (80-97); Mean Platelet Volume 7.8 fL (7.5-11.2); Platelet Count 167 10^3/uL (150-450); Red Blood Count 4.07 10^6/uL (4.06-5.63); Red Cell Distribution Width 14.9 % (12-17); White Blood Count 7.6 10^3/uL (3.6-10.2)
[2022-11-27 06:34] LABS: Calcium 8.2 mg/dL (8.6-10.3); Creatinine, Serum 1.02 mg/dL (0.67-1.17); Potassium 3.8 mmol/L (3.5-5.0); eGFR CKD-EPI 72.5 (>60)
[2022-11-27] MEDS: CICLESONIDE 80 MCG INH SCH (07:39)
[2022-11-27] MEDS: D5W 1/2 NS 1000 ml BAG 1,000 ML IV SCH ×2 (10:06→22:21)
[2022-11-27] MEDS: Pantoprazole VIAL 40 MG VIAL IV SCH (11:03)
[2022-11-27] MEDS: Enoxaparin 40 MG/0.4 ML SYR SUBCUT SCH (11:03)
[2022-11-27] MEDS: DULoxetine DR 60 mg CAP PO SCH (11:40)
[2022-11-27] MEDS: Acetaminophen IV 1 GM/100ML 1,000 MG/100 ML BAG IV PRN (22:21)
[2022-11-28 06:16] LABS: Albumin 3.3 g/dL (3.2-5.2); Albumin/Globulin Ratio 1.4 (1-3); Calcium 8.2 mg/dL (8.6-10.3); Creatinine, Serum 0.92 mg/dL (0.67-1.17); Globulin 2.3 g/dL (2-4); Magnesium 1.9 mg/dL (1.9-2.7); Phosphorus 2.3 mg/dL (2.5-5.0); Potassium 3.6 mmol/L (3.5-5.0); Total Bilirubin 1.2 mg/dL (0.2-1.0); Total Protein 5.6 g/dL (6.4-8.9)
[2022-11-28] MEDS: CICLESONIDE 80 MCG INH SCH (08:25)
[2022-11-28] MEDS: Cholecalciferol (VIT D3) 1,000 unit TAB PO SCH (10:23)
[2022-11-28] MEDS: Pantoprazole VIAL 40 MG VIAL IV SCH ×2 (10:24→11:17)
[2022-11-28] MEDS: DULoxetine DR 60 mg CAP PO SCH (10:24)
[2022-11-28] MEDS: Enoxaparin 40 MG/0.4 ML SYR SUBCUT SCH (11:17)
[2022-11-28] MEDS: Acetaminophen IV 1 GM/100ML 1,000 MG/100 ML BAG IV PRN (15:31)
[2022-11-29] MEDS: Acetaminophen IV 1 GM/100ML 1,000 MG/100 ML BAG IV PRN ×2 (04:21→21:28)
[2022-11-29 05:57] LABS: ABS Eosinophils 0.2 10^3/uL (0.0-0.5); ABS Lymphocytes 0.9 10^3/uL (1.0-4.8); ABS Monocytes 0.8 10^3/uL (0.0-1.1); ABS Neutrophils 5.3 10^3/uL (1.5-7.6); ABS Nucleated RBC 0.01 10^3/ul; Eosinophil % 2.5 %; Hematocrit 36.3 % (38-53); Hemoglobin 12.4 g/dL (13.2-16.3); Lymphocyte % 12.4 %; Mean Corpuscular Hemoglobin 31.1 pg (27-33); Mean Corpuscular Hgb Conc 34.1 g/dL (31-36); Mean Corpuscular Volume 91.2 fL (80-97); Mean Platelet Volume 7.5 fL (7.5-11.2); Nucleated Red Blood Cells % 0.1 /100 WBC (0.0-0.4); Platelet Count 180 10^3/uL (150-450); Red Blood Count 3.98 10^6/uL (4.06-5.63); Red Cell Distribution Width 14.6 % (12-17); White Blood Count 7.3 10^3/uL (3.6-10.2)
[2022-11-29 06:28] LABS: Albumin 3.2 g/dL (3.2-5.2); Albumin/Globulin Ratio 1.5 (1-3); Calcium 8.2 mg/dL (8.6-10.3); Creatinine, Serum 0.94 mg/dL (0.67-1.17); Globulin 2.2 g/dL (2-4); Magnesium 1.8 mg/dL (1.9-2.7); Phosphorus 2.5 mg/dL (2.5-5.0); Potassium 3.5 mmol/L (3.5-5.0); Total Bilirubin 1.2 mg/dL (0.2-1.0); Total Protein 5.4 g/dL (6.4-8.9); eGFR CKD-EPI 79.9 (>60)
[2022-11-29] MEDS: DULoxetine DR 60 mg CAP PO SCH (08:12)
[2022-11-29] MEDS: Pantoprazole VIAL 40 MG VIAL IV SCH (08:12)
[2022-11-29] MEDS: Enoxaparin 40 MG/0.4 ML SYR SUBCUT SCH (09:15)
[2022-11-29] MEDS: CICLESONIDE 80 MCG INH SCH (09:54)
[2022-11-29] MEDS: Potassium Chlor 20 meq TAB.ER PO SCH ×3 (16:01→20:11)
[2022-11-29 16:39] LABS: Calcium 8.5 mg/dL (8.6-10.3); Creatinine, Serum 1.21 mg/dL (0.67-1.17); Magnesium 1.8 mg/dL (1.9-2.7); Potassium 3.8 mmol/L (3.5-5.0)
[2022-11-29] MEDS ORDERED: Magnesium Sulfate 2 gm BAG 2 GM/50 ML BAG IVPB ONE (16:41)
[2022-11-29] MEDS: Ondansetron 4 mg VIAL 2 MG/ML 2 ml VIAL IV PRN (20:11)
[2022-11-29] MEDS ORDERED: Enoxaparin 100 MG/ML SYR SUBCUT SCH (21:00)
[2022-11-30 06:55] LABS: Calcium 8.4 mg/dL (8.6-10.3); Creatinine, Serum 1.17 mg/dL (0.67-1.17); eGFR CKD-EPI 61.5 (>60)
[2022-11-30] MEDS: Acetaminophen IV 1 GM/100ML 1,000 MG/100 ML BAG IV PRN ×2 (07:40→18:50)
[2022-11-30 07:53] LABS: ABS Basophils 0.1 10^3/uL (0.0-0.1); ABS Eosinophils 0.2 10^3/uL (0.0-0.5); ABS Monocytes 1.1 10^3/uL (0.0-1.1); ABS Neutrophils 7.4 10^3/uL (1.5-7.6); ABS Nucleated RBC 0.01 10^3/ul; Eosinophil % 1.9 %; Hematocrit 38.2 % (38-53); Hemoglobin 13.5 g/dL (13.2-16.3); Mean Corpuscular Hemoglobin 32.5 pg (27-33); Mean Corpuscular Hgb Conc 35.4 g/dL (31-36); Mean Corpuscular Volume 91.8 fL (80-97); Nucleated Red Blood Cells % 0.1 /100 WBC (0.0-0.4); Platelet Count 216 10^3/uL (150-450); Red Blood Count 4.16 10^6/uL (4.06-5.63); Red Cell Distribution Width 14.6 % (12-17); White Blood Count 9.7 10^3/uL (3.6-10.2)
[2022-11-30 08:46] LABS: Magnesium 2.3 mg/dL (1.9-2.7)
[2022-11-30] MEDS: Pantoprazole VIAL 40 MG VIAL IV SCH (08:59)
[2022-11-30] MEDS: Cholecalciferol (VIT D3) 1,000 unit TAB PO SCH (09:01)
[2022-11-30] MEDS: DULoxetine DR 60 mg CAP PO SCH (09:03)
[2022-11-30] MEDS: Enoxaparin 40 MG/0.4 ML SYR SUBCUT SCH (09:03)
[2022-11-30] MEDS: CICLESONIDE 80 MCG INH SCH (09:33)
[2022-11-30] MEDS ORDERED: Sulfur Hexaflouride MICROSPHR 25 MG VIAL ONE (11:13)
[2022-11-30 11:57] LABS: Free T3 3.2 pg/mL (2.5-3.9); TSH Ultra Thyroid Stim Horm 1.68 mcIU/mL (0.34-5.60)
[2022-11-30 12:03] LABS: Free T4 1.31 ng/dL (0.61-1.12)
[2022-11-30] MEDS: Ondansetron 4 mg VIAL 2 MG/ML 2 ml VIAL IV PRN (12:51)
[2022-11-30] MEDS ORDERED: Metoclopramide 5 MG/ML VIAL (10 mg) ONE (13:30)
[2022-11-30] MEDS: Metoclopramide 5 MG/ML VIAL (10 mg) IV SLOW PU PRN (13:33)
[2022-11-30] MEDS: D5W 1/2 NS 1000 ml BAG 1,000 ML IV SCH (14:10)
[2022-12-01] MEDS: Acetaminophen IV 1 GM/100ML 1,000 MG/100 ML BAG IV PRN ×2 (03:34→12:25)
[2022-12-01] MEDS: D5W 1/2 NS 1000 ml BAG 1,000 ML IV SCH (04:19)
[2022-12-01] MEDS: Metoclopramide 5 MG/ML VIAL (10 mg) IV SLOW PU PRN (05:01)
[2022-12-01] MEDS: CICLESONIDE 80 MCG INH SCH (08:06)
[2022-12-01] MEDS: Pantoprazole VIAL 40 MG VIAL IV SCH (10:05)
[2022-12-01] MEDS: DULoxetine DR 60 mg CAP PO SCH (10:09)
[2022-12-01] MEDS: Enoxaparin 40 MG/0.4 ML SYR SUBCUT SCH (10:12)
[2022-12-01] MEDS: Ondansetron 4 mg VIAL 2 MG/ML 2 ml VIAL IV PRN (12:23)
[2022-12-01] MEDS: PPN (PERIPHERAL) 24 HR with D10W 1000 ml BAG 1,000 ML, Amino Acid Infusion 10% 850 ML, ... IV SCH (17:18)
[2022-12-02 06:44] LABS: Albumin 3.3 g/dL (3.2-5.2); Albumin/Globulin Ratio 1.3 (1-3); Creatinine, Serum 1.44 mg/dL (0.67-1.17); Globulin 2.5 g/dL (2-4); Magnesium 2.2 mg/dL (1.9-2.7); Phosphorus 2.6 mg/dL (2.5-5.0); Total Bilirubin 0.7 mg/dL (0.2-1.0); Total Protein 5.8 g/dL (6.4-8.9); eGFR CKD-EPI 47.9 (>60)
[2022-12-02] MEDS: Cholecalciferol (VIT D3) 1,000 unit TAB PO SCH (08:24)
[2022-12-02] MEDS: Enoxaparin 40 MG/0.4 ML SYR SUBCUT SCH (08:28)
[2022-12-02] MEDS: DULoxetine DR 60 mg CAP PO SCH (08:28)
[2022-12-02] MEDS: CICLESONIDE 80 MCG INH SCH (08:29)
[2022-12-02] MEDS: Pantoprazole VIAL 40 MG VIAL IV SCH (08:42)
[2022-12-02] MEDS ORDERED: Enoxaparin 60 MG/0.6 ML SYR SUBCUT ONE (11:31)
[2022-12-02] MEDS: PPN (PERIPHERAL) 24 HR with D10W 1000 ml BAG 1,000 ML, Amino Acid Infusion 10% 850 ML, ... IV SCH (17:09)
[2022-12-02] MEDS: Enoxaparin 100 MG/ML SYR SUBCUT SCH (20:50)
[2022-12-03] MEDS ORDERED: Benzocaine (plain) Lozenge 15 MG MT PRN (05:04)
[2022-12-03 06:17] LABS: Calcium 7.8 mg/dL (8.6-10.3); Creatinine, Serum 1.08 mg/dL (0.67-1.17); Phosphorus 2.5 mg/dL (2.5-5.0); Potassium 3.9 mmol/L (3.5-5.0); eGFR CKD-EPI 67.7 (>60)
[2022-12-03] MEDS: CICLESONIDE 80 MCG INH SCH (07:00)
[2022-12-03 08:26] LABS: Magnesium 2.1 mg/dL (1.9-2.7)
[2022-12-03] MEDS: DULoxetine DR 60 mg CAP PO SCH (08:32)
[2022-12-03] MEDS: Enoxaparin 100 MG/ML SYR SUBCUT SCH ×2 (08:36→21:15)
[2022-12-03] MEDS: Pantoprazole VIAL 40 MG VIAL IV SCH (11:50)
[2022-12-03] MEDS: Potassium Chlor 20 meq TAB.ER PO SCH ×2 (17:25→21:15)
[2022-12-04 05:49] LABS: ABS Eosinophils 0.1 10^3/uL (0.0-0.5); ABS Lymphocytes 0.9 10^3/uL (1.0-4.8); ABS Monocytes 0.6 10^3/uL (0.0-1.1); ABS Neutrophils 4.4 10^3/uL (1.5-7.6); Eosinophil % 1.6 %; Hematocrit 34.7 % (38-53); Hemoglobin 11.9 g/dL (13.2-16.3); Lymphocyte % 14.6 %; Mean Corpuscular Hemoglobin 31.4 pg (27-33); Mean Corpuscular Hgb Conc 34.4 g/dL (31-36); Mean Corpuscular Volume 91.4 fL (80-97); Mean Platelet Volume 7.5 fL (7.5-11.2); Platelet Count 217 10^3/uL (150-450); Red Cell Distribution Width 14.7 % (12-17)
[2022-12-04 06:37] LABS: Calcium 8.1 mg/dL (8.6-10.3); Creatinine, Serum 0.9 mg/dL (0.67-1.17); Phosphorus 2.5 mg/dL (2.5-5.0); Potassium 4.4 mmol/L (3.5-5.0); eGFR CKD-EPI 84.2 (>60)
[2022-12-04] MEDS: CICLESONIDE 80 MCG INH SCH (07:21)
[2022-12-04] MEDS: Enoxaparin 100 MG/ML SYR SUBCUT SCH (11:16)
[2022-12-04] MEDS: Cholecalciferol (VIT D3) 1,000 unit TAB PO SCH (11:17)
[2022-12-04] MEDS: DULoxetine DR 60 mg CAP PO SCH (11:18)
[2022-12-04] MEDS: Pantoprazole VIAL 40 MG VIAL IV SCH (13:12)
[2022-12-04 15:49] VITALS: BP 101/66
== END 2022-12-04 17:15 | disposition home or self-care (01) | DRG 357 ==
LOC: ED 00:12 → SUATTDRO 08:09 → EDHOLD 08:09 → SSU 20:00 → MED 20:22 → SSU 11-24 15:53
PROVIDERS: ADMIT Internal Medicine; ATTEND Hospitalist

== ENCOUNTER 2022-12-18 01:24 | Inpatient (IN) ==
[2022-12-18 01:56] LABS: ABS Basophils 0.1 10^3/uL (0.0-0.1); ABS Eosinophils 0.3 10^3/uL (0.0-0.5); ABS Lymphocytes 1.3 10^3/uL (1.0-4.8); ABS Monocytes 0.6 10^3/uL (0.0-1.1); ABS Neutrophils 3.7 10^3/uL (1.5-7.6); Eosinophil % 5.1 %; Hematocrit 32.8 % (38-53); Hemoglobin 11.2 g/dL (13.2-16.3); Lymphocyte % 22.3 %; Mean Corpuscular Hemoglobin 31.5 pg (27-33); Mean Corpuscular Hgb Conc 34.2 g/dL (31-36); Mean Corpuscular Volume 92.1 fL (80-97); Mean Platelet Volume 7.2 fL (7.5-11.2); Nucleated Red Blood Cells % 0.1 /100 WBC (0.0-0.4); Platelet Count 209 10^3/uL (150-450); Red Blood Count 3.56 10^6/uL (4.06-5.63); Red Cell Distribution Width 15.7 % (12-17)
[2022-12-18 02:01] LABS: INR 1.3 (0.88-1.18)
[2022-12-18] MEDS ORDERED: Dexamethasone IV 4 MG/ML VIAL 1 ml VIAL IV SLOW PU ONE (02:09)
[2022-12-18 02:13] LABS: Albumin 3.6 g/dL (3.2-5.2); Albumin/Globulin Ratio 1.4 (1-3); Calcium 8.4 mg/dL (8.6-10.3); Creatinine, Serum 1.16 mg/dL (0.67-1.17); Globulin 2.5 g/dL (2-4); Potassium 3.8 mmol/L (3.5-5.0); Total Bilirubin 0.8 mg/dL (0.2-1.0); Total Protein 6.1 g/dL (6.4-8.9); eGFR CKD-EPI 62.1 (>60)
[2022-12-18] MEDS: Albuterol/Ipratropium NEB.SOL (2.5/0.5 MG) 3 ML NEB.SOLN INH SCH (02:24)
[2022-12-18 02:27] LABS: Magnesium 2.1 mg/dL (1.9-2.7)
[2022-12-18 02:35] LABS: Venous Bicarbonate HCO3 26.6 mmol/L (24-28)
[2022-12-18 03:11] LABS: High Sensitivity Troponin 1 Hr 113 pg/mL (<20)
[2022-12-18] MEDS ORDERED: Iohexol 350 (CONTRAST) 500 ML MDV IV ONE (04:38)
[2022-12-18] MEDS ORDERED: Furosemide 40 mg/4 ml IV VIAL IV ONE (06:20)
[2022-12-18] MEDS ORDERED: Tranexamic Acid 1,000 MG/10 ML SDV TOPICAL ONE (07:28)
[2022-12-18] MEDS ORDERED: Oxymetazoline 0.05% NASAL SPR 15 ML BTL BOTH NARES ONE (07:35)
[2022-12-18] MEDS ORDERED: Oxymetazoline 0.05% NASAL SPR 15 ML BTL ONE (07:36)
[2022-12-18] MEDS ORDERED: Furosemide 20 mg/2 ml IV VIAL IV SLOW PU ONE (08:19)
[2022-12-18] MEDS ORDERED: Amoxicillin/Clavul 875/125 TAB (Augmentin 875 tab) PO SCH (09:00)
[2022-12-18] MEDS ORDERED: Potassium Chloride LIQUID 20 MEQ/15 ML LIQUID PO ONE (09:02)
[2022-12-18] MEDS ORDERED: Lidocaine 2% JELLY 6 ML Topical TOPICAL ONE (09:21)
[2022-12-18] MEDS: DULoxetine DR 60 mg CAP PO SCH (10:21)
[2022-12-18] MEDS: Solifenacin 5 mg TAB (NF) PO SCH (10:21)
[2022-12-18] MEDS: Albuterol HFA INHALER 8 gm MDI INH PRN (10:45)
[2022-12-18] MEDS: CICLESONIDE INH SCH (11:23)
[2022-12-18] MEDS: TACROLIMUS 0.1% TOPICAL SCH ×2 (11:23→20:33)
[2022-12-18] MEDS ORDERED: Heparin 5000 UNITS/ML 1 mL VIAL IV SCH (12:00)
[2022-12-18] MEDS: Heparin DRIP 25,000 UNITS BAG 25,000 UNITS/500 ML BAG IV SCH (13:29)
[2022-12-18] MEDS ORDERED: Potassium Chlor 20 meq TAB.ER PO ONE ×2 (20:07)
[2022-12-18 21:06] LABS: Calcium 8.5 mg/dL (8.6-10.3); Creatinine, Serum 1.3 mg/dL (0.67-1.17); Magnesium 2.2 mg/dL (1.9-2.7); Potassium 3.9 mmol/L (3.5-5.0); eGFR CKD-EPI 54.2 (>60)
[2022-12-19] MEDS: Heparin DRIP 25,000 UNITS BAG 25,000 UNITS/500 ML BAG IV SCH (06:43)
[2022-12-19 07:02] LABS: Hematocrit 29.4 % (38-53); Hemoglobin 10.2 g/dL (13.2-16.3); Mean Corpuscular Hemoglobin 31.8 pg (27-33); Mean Corpuscular Hgb Conc 34.8 g/dL (31-36); Mean Corpuscular Volume 91.4 fL (80-97); Mean Platelet Volume 7.4 fL (7.5-11.2); Platelet Count 217 10^3/uL (150-450); Red Blood Count 3.21 10^6/uL (4.06-5.63); Red Cell Distribution Width 15.2 % (12-17); White Blood Count 6.8 10^3/uL (3.6-10.2)
[2022-12-19 07:15] LABS: Calcium 8.2 mg/dL (8.6-10.3); Creatinine, Serum 1.15 mg/dL (0.67-1.17); Magnesium 2.1 mg/dL (1.9-2.7); Potassium 3.8 mmol/L (3.5-5.0); eGFR CKD-EPI 62.8 (>60)
[2022-12-19] MEDS ORDERED: Potassium Chloride LIQUID 20 MEQ/15 ML LIQUID PO ONE (08:05)
[2022-12-19] MEDS: Solifenacin 5 mg TAB (NF) PO SCH (09:39)
[2022-12-19] MEDS: DULoxetine DR 60 mg CAP PO SCH (09:39)
[2022-12-19] MEDS: CICLESONIDE INH SCH (09:40)
[2022-12-19] MEDS: TACROLIMUS 0.1% TOPICAL SCH ×2 (09:40→20:46)
[2022-12-20] MEDS ORDERED: Fluticasone NASAL SPRAY 50MCG 16 gm SPRAY BTL BOTH NARES SCH (05:30)
[2022-12-20 05:53] LABS: ABS Basophils 0.1 10^3/uL (0.0-0.1); ABS Eosinophils 0.4 10^3/uL (0.0-0.5); ABS Lymphocytes 1.2 10^3/uL (1.0-4.8); ABS Monocytes 0.6 10^3/uL (0.0-1.1); ABS Neutrophils 3.8 10^3/uL (1.5-7.6); ABS Nucleated RBC 0.01 10^3/ul; Eosinophil % 6.1 %; Hematocrit 31.9 % (38-53); Hemoglobin 10.8 g/dL (13.2-16.3); Lymphocyte % 19.8 %; Mean Corpuscular Hemoglobin 30.8 pg (27-33); Mean Corpuscular Volume 90.6 fL (80-97); Mean Platelet Volume 7.1 fL (7.5-11.2); Nucleated Red Blood Cells % 0.1 /100 WBC (0.0-0.4); Platelet Count 205 10^3/uL (150-450); Red Blood Count 3.52 10^6/uL (4.06-5.63)
[2022-12-20 06:13] LABS: Calcium 8.5 mg/dL (8.6-10.3); Creatinine, Serum 1.13 mg/dL (0.67-1.17); Magnesium 1.9 mg/dL (1.9-2.7); Potassium 3.9 mmol/L (3.5-5.0); eGFR CKD-EPI 64.1 (>60)
[2022-12-20] MEDS ORDERED: Magnesium Sulfate IV 1GM/100ML 1 GM/100 ML BAG IV ONE (06:52)
[2022-12-20] MEDS ORDERED: Potassium Chlor 10 meq TAB PO ONE (06:52)
[2022-12-20] MEDS ORDERED: NS 0.9% 1000 ml BAG 1,000 ML IV ONE (07:00)
[2022-12-20] MEDS: CICLESONIDE INH SCH (08:12)
[2022-12-20] MEDS ORDERED: fentaNYL 100 mcg/2 ml 50 MCG/ML VIAL ONE (09:11)
[2022-12-20] MEDS ORDERED: Midazolam 5 mg/5 ml VIAL 1 mg/ml 5 ml VIAL (5 mg) ONE (09:11)
[2022-12-20] MEDS ORDERED: Naloxone 0.4 mg VIAL 0.4 mg/ml 1 ml VIAL ONE (09:11)
[2022-12-20] MEDS ORDERED: Flumazenil 0.5 mg/5 ml 0.1 MG/ML 5 ml VIAL ONE (09:11)
[2022-12-20] MEDS ORDERED: fentaNYL 100 mcg/2 ml 50 MCG/ML VIAL IV SLOW PU ONE (09:25)
[2022-12-20] MEDS ORDERED: Midazolam 10 mg/10 ml VIAL 1 mg/ml 10 ml VIAL (10 mg) IV SLOW PU ONE (09:25)
[2022-12-20] MEDS: FLUTICASONE SALMETEROL INH SCH ×2 (11:20→21:54)
[2022-12-20] MEDS: DULoxetine DR 60 mg CAP PO SCH (11:22)
[2022-12-20] MEDS: TACROLIMUS 0.1% TOPICAL SCH ×2 (11:23→21:54)
[2022-12-20] MEDS: Solifenacin 5 mg TAB (NF) PO SCH (11:23)
[2022-12-21 06:03] LABS: ABS Eosinophils 0.4 10^3/uL (0.0-0.5); ABS Lymphocytes 1.3 10^3/uL (1.0-4.8); ABS Monocytes 0.7 10^3/uL (0.0-1.1); ABS Neutrophils 3.7 10^3/uL (1.5-7.6); Hematocrit 31.9 % (38-53); Hemoglobin 10.9 g/dL (13.2-16.3); Lymphocyte % 20.9 %; Mean Corpuscular Hemoglobin 31.5 pg (27-33); Mean Corpuscular Hgb Conc 34.2 g/dL (31-36); Mean Platelet Volume 7.1 fL (7.5-11.2); Platelet Count 198 10^3/uL (150-450); Red Blood Count 3.47 10^6/uL (4.06-5.63); Red Cell Distribution Width 15.6 % (12-17); White Blood Count 6.1 10^3/uL (3.6-10.2)
[2022-12-21 06:21] LABS: Calcium 8.3 mg/dL (8.6-10.3); Creatinine, Serum 1.14 mg/dL (0.67-1.17); Potassium 3.7 mmol/L (3.5-5.0); eGFR CKD-EPI 63.4 (>60)
[2022-12-21] MEDS: Albuterol HFA INHALER 8 gm MDI INH PRN (07:15)
[2022-12-21] MEDS: FLUTICASONE SALMETEROL INH SCH (07:15)
[2022-12-21] MEDS: Solifenacin 5 mg TAB (NF) PO SCH (07:17)
[2022-12-21] MEDS: DULoxetine DR 60 mg CAP PO SCH (07:17)
[2022-12-21] MEDS: TACROLIMUS 0.1% TOPICAL SCH (07:22)
[2022-12-21] MEDS ORDERED: Potassium Chlor 20 meq TAB.ER PO ONE (07:49)
[2022-12-21 14:51] VITALS: BP 110/64
== END 2022-12-21 14:45 | disposition home or self-care (01) | DRG 291 ==
LOC: EDHOLD 01:24 → ED 01:24 → SUATTDRO 08:14 → EDHOLD 14:55 → MEDTELE 15:18 → SUATTDRO 12-19 12:00
PROVIDERS: ADMIT Internal Medicine; ATTEND Hospitalist

== ENCOUNTER 2023-01-01 17:22 | Observation (INO) ==
[2023-01-01 18:01] LABS: ABS Basophils 0.1 10^3/uL (0.0-0.1); ABS Eosinophils 0.2 10^3/uL (0.0-0.5); ABS Lymphocytes 1.7 10^3/uL (1.0-4.8); ABS Monocytes 0.6 10^3/uL (0.0-1.1); ABS Neutrophils 4.5 10^3/uL (1.5-7.6); ABS Nucleated RBC 0.01 10^3/ul; Eosinophil % 2.8 %; Hematocrit 32.9 % (38-53); Lymphocyte % 24.5 %; Mean Corpuscular Hemoglobin 30.3 pg (27-33); Mean Corpuscular Hgb Conc 33.3 g/dL (31-36); Mean Corpuscular Volume 91.1 fL (80-97); Mean Platelet Volume 7.3 fL (7.5-11.2); Nucleated Red Blood Cells % 0.1 /100 WBC (0.0-0.4); Platelet Count 254 10^3/uL (150-450); Red Blood Count 3.61 10^6/uL (4.06-5.63); Red Cell Distribution Width 16.4 % (12-17); White Blood Count 7.1 10^3/uL (3.6-10.2)
[2023-01-01 18:18] LABS: ALT 28 U/L (7-52); Albumin 3.8 g/dL (3.2-5.2); Albumin/Globulin Ratio 1.2 (1-3); Alkaline Phosphatase 64 U/L (35-149); Blood Urea Nitrogen 20 mg/dL (6-24); CO2 Carbon Dioxide 24 mmol/L (22-32); Calcium 9.2 mg/dL (8.6-10.3); Chloride 103 mmol/L (101-111); Creatinine, Serum 1.14 mg/dL (0.67-1.17); Globulin 3.2 g/dL (2-4); Glucose 116 mg/dL (70-100); Sodium 136 mmol/L (135-145); eGFR CKD-EPI 63.4 (>60)
[2023-01-01 18:24] LABS: High Sens Troponin Baseline 40 pg/mL (<20)
[2023-01-01 18:31] LABS: Anion Gap 9 mmol/L (2-16)
[2023-01-01 19:19] LABS: Potassium 3.4 mmol/L (3.5-5.0)
[2023-01-01] MEDS ORDERED: Potassium Chlor 20 meq TAB.ER PO ONE (20:09)
[2023-01-01] MEDS ORDERED: Albuterol HFA INHALER 8 gm MDI INH PRN (21:10)
[2023-01-01] MEDS ORDERED: CMCS: Ketoconazole 2 % CREAM (NF) 30 GM TUBE TOPICAL PRN (21:10)
[2023-01-01] MEDS ORDERED: ECONAZOLE 1% TOPICAL PRN (21:10)
[2023-01-01] MEDS ORDERED: Furosemide 40 mg/4 ml IV VIAL IV SLOW PU ONE (21:26)
[2023-01-02] MEDS ORDERED: Potassium EFFERVES 25 meq TAB PO ONE (07:43)
[2023-01-02] MEDS ORDERED: TACROLIMUS 0.1% TOPICAL SCH (09:00)
[2023-01-02] MEDS ORDERED: CMCS: Solifenacin 5 mg TAB (NF) PO SCH (09:00)
[2023-01-02] MEDS ORDERED: Furosemide 40 mg/4 ml IV VIAL IV SCH ×2 (09:00→10:00)
[2023-01-02] MEDS ORDERED: DULoxetine DR 60 mg CAP PO SCH (09:00)
[2023-01-02] MEDS ORDERED: CICLESONIDE INH SCH (09:00)
[2023-01-02 11:41] VITALS: BP 107/75
[2023-01-03] MEDS ORDERED: Cholecalciferol (VIT D3) 1,000 unit TAB PO SCH (09:00)
== END 2023-01-02 11:41 | disposition home or self-care (01) ==
LOC: ED 17:22 → EDHOLD 17:22 → SUATTDRO 21:16 → EDHOLD 01-02 11:40
PROVIDERS: ADMIT Student in an Organized Health Care Education/Training Program; ATTEND Internal Medicine

== ENCOUNTER 2023-01-08 15:28 | Observation (INO) ==
[2023-01-08 16:03] LABS: ABS Eosinophils 0.2 10^3/uL (0.0-0.5); ABS Lymphocytes 1.9 10^3/uL (1.0-4.8); ABS Monocytes 0.6 10^3/uL (0.0-1.1); ABS Neutrophils 4.7 10^3/uL (1.5-7.6); Eosinophil % 2.8 %; Hematocrit 32.9 % (38-53); Hemoglobin 11.1 g/dL (13.2-16.3); Mean Corpuscular Hgb Conc 33.7 g/dL (31-36); Mean Platelet Volume 7.2 fL (7.5-11.2); Platelet Count 219 10^3/uL (150-450); Red Blood Count 3.58 10^6/uL (4.06-5.63); White Blood Count 7.3 10^3/uL (3.6-10.2)
[2023-01-08] MEDS ORDERED: Furosemide 40 mg/4 ml IV VIAL IV ONE (16:12)
[2023-01-08 16:54] LABS: Albumin 3.4 g/dL (3.2-5.2); Albumin/Globulin Ratio 1.3 (1-3); Calcium 7.8 mg/dL (8.6-10.3); Creatinine, Serum 0.97 mg/dL (0.67-1.17); Globulin 2.7 g/dL (2-4); Potassium 3.6 mmol/L (3.5-5.0); Total Bilirubin 0.7 mg/dL (0.2-1.0); Total Protein 6.1 g/dL (6.4-8.9)
[2023-01-08 17:20] LABS: High Sensitivity Troponin 1 Hr 38 pg/mL (<20)
[2023-01-08] MEDS ORDERED: Albuterol HFA INHALER 8 gm MDI INH PRN (19:27)
[2023-01-09 06:51] LABS: ABS Basophils 0.1 10^3/uL (0.0-0.1); ABS Eosinophils 0.3 10^3/uL (0.0-0.5); ABS Lymphocytes 1.7 10^3/uL (1.0-4.8); ABS Monocytes 0.5 10^3/uL (0.0-1.1); ABS Neutrophils 3.1 10^3/uL (1.5-7.6); Calcium 8.5 mg/dL (8.6-10.3); Creatinine, Serum 1.22 mg/dL (0.67-1.17); Eosinophil % 5.9 %; Hematocrit 32.9 % (38-53); Lymphocyte % 29.5 %; Mean Corpuscular Hemoglobin 30.8 pg (27-33); Mean Corpuscular Hgb Conc 33.5 g/dL (31-36); Mean Corpuscular Volume 92.1 fL (80-97); Mean Platelet Volume 7.4 fL (7.5-11.2); Platelet Count 211 10^3/uL (150-450); Potassium 3.8 mmol/L (3.5-5.0); Red Blood Count 3.57 10^6/uL (4.06-5.63); Red Cell Distribution Width 16.6 % (12-17); White Blood Count 5.7 10^3/uL (3.6-10.2); eGFR CKD-EPI 58.5 (>60)
[2023-01-09 08:02] LABS: Magnesium 2.1 mg/dL (1.9-2.7)
[2023-01-09] MEDS ORDERED: Furosemide 40 mg/4 ml IV VIAL IV SCH (09:00)
[2023-01-09] MEDS: DULoxetine DR 60 mg CAP PO SCH (10:44)
[2023-01-09] MEDS: Solifenacin 5 mg TAB (NF) PO SCH (10:45)
[2023-01-09] MEDS ORDERED: Furosemide 20 mg/2 ml IV VIAL IV ONE (11:52)
[2023-01-09] MEDS ORDERED: Mometasone 220 MCG MDI INH SCH (19:00)
[2023-01-10 06:15] LABS: Hematocrit 35.1 % (38-53); Hemoglobin 11.6 g/dL (13.2-16.3); Mean Corpuscular Hemoglobin 30.1 pg (27-33); Mean Corpuscular Hgb Conc 33.1 g/dL (31-36); Mean Corpuscular Volume 90.9 fL (80-97); Mean Platelet Volume 7.1 fL (7.5-11.2); Platelet Count 227 10^3/uL (150-450); Red Blood Count 3.86 10^6/uL (4.06-5.63); Red Cell Distribution Width 16.5 % (12-17); White Blood Count 5.9 10^3/uL (3.6-10.2)
[2023-01-10 06:23] LABS: Calcium 8.7 mg/dL (8.6-10.3); Creatinine, Serum 1.17 mg/dL (0.67-1.17); Magnesium 2.1 mg/dL (1.9-2.7); Potassium 3.5 mmol/L (3.5-5.0); eGFR CKD-EPI 61.5 (>60)
[2023-01-10] MEDS ORDERED: Potassium Chlor 20 meq TAB.ER PO ONE (07:25)
[2023-01-10] MEDS: DULoxetine DR 60 mg CAP PO SCH (09:57)
[2023-01-10] MEDS: Solifenacin 5 mg TAB (NF) PO SCH (09:58)
[2023-01-10 11:15] VITALS: BP 95/74
== END 2023-01-10 14:45 | disposition home or self-care (01) ==
LOC: EDHOLD 15:28 → ED 15:28 → SUATTDRO 18:40 → MEDTELE 19:39
PROVIDERS: ADMIT Internal Medicine; ATTEND Internal Medicine

== ENCOUNTER 2023-09-26 09:05 | Observation (INO) ==
[2023-09-26 09:36] LABS: ABS Basophils 0.1 10^3/uL (0.0-0.1); ABS Eosinophils 0.3 10^3/uL (0.0-0.5); ABS Monocytes 0.5 10^3/uL (0.0-1.1); ABS Neutrophils 4.3 10^3/uL (1.5-7.6); ABS Nucleated RBC 0.01 10^3/ul; Eosinophil % 5.1 %; Hematocrit 31.1 % (38-53); Hemoglobin 10.1 g/dL (13.2-16.3); Lymphocyte % 16.2 %; Mean Corpuscular Hgb Conc 32.4 g/dL (31-36); Mean Corpuscular Volume 95.5 fL (80-97); Mean Platelet Volume 8.5 fL (7.5-11.2); Nucleated Red Blood Cells % 0.1 %/100WBC (0.0-0.8); Platelet Count 106 10^3/uL (150-450); Red Blood Count 3.25 10^6/uL (4.06-5.63); White Blood Count 6.3 10^3/uL (3.6-10.2)
[2023-09-26 09:48] LABS: INR 1.52 (0.83-1.13)
[2023-09-26 10:36] LABS: Albumin/Globulin Ratio 1.7 (1-3); Calcium 8.8 mg/dL (8.6-10.3); Creatinine, Serum 1.37 mg/dL (0.67-1.17); Globulin 2.4 g/dL (2-4); Potassium 4.8 mmol/L (3.5-5.0); Total Bilirubin 0.6 mg/dL (0.2-1.0); Total Protein 6.4 g/dL (6.4-8.9); eGFR CKD-EPI 50.6 (>60)
[2023-09-26 11:12] LABS: High Sensitivity Troponin 1 Hr 29 pg/mL (<20)
[2023-09-26] MEDS: Furosemide 40 mg/4 ml IV VIAL IV ONE ×3 (13:42→21:21)
[2023-09-26] MEDS ORDERED: Levalbuterol HFA INHALER MDI INH PRN (20:14)
[2023-09-26] MEDS: Aspirin EC 81 mg TAB.EC (enteric coated) PO SCH (21:20)
[2023-09-26] MEDS: Psyllium PAK PO SCH (21:22)
[2023-09-27] MEDS: Mometasone/Formoter 100/5 MDI INH SCH (02:21)
[2023-09-27 05:34] LABS: ABS Basophils 0.1 10^3/uL (0.0-0.1); ABS Eosinophils 0.4 10^3/uL (0.0-0.5); ABS Lymphocytes 1.3 10^3/uL (1.0-4.8); ABS Monocytes 0.6 10^3/uL (0.0-1.1); ABS Neutrophils 3.6 10^3/uL (1.5-7.6); Eosinophil % 6.8 %; Hematocrit 32.9 % (38-53); Lymphocyte % 21.6 %; Mean Corpuscular Hemoglobin 31.3 pg (27-33); Mean Corpuscular Hgb Conc 33.3 g/dL (31-36); Mean Corpuscular Volume 93.9 fL (80-97); Mean Platelet Volume 8.1 fL (7.5-11.2); Nucleated Red Blood Cells % 0.1 %/100WBC (0.0-0.8); Platelet Count 107 10^3/uL (150-450); Red Blood Count 3.51 10^6/uL (4.06-5.63); Red Cell Distribution Width 17.6 % (12-17); White Blood Count 5.9 10^3/uL (3.6-10.2)
[2023-09-27 06:06] LABS: Calcium 8.8 mg/dL (8.6-10.3); Creatinine, Serum 1.46 mg/dL (0.67-1.17); Potassium 3.9 mmol/L (3.5-5.0); eGFR CKD-EPI 46.8 (>60)
[2023-09-27 07:40] LABS: Magnesium 2.2 mg/dL (1.9-2.7)
[2023-09-27] MEDS: DULoxetine DR 60 mg CAP PO SCH (08:02)
[2023-09-27] MEDS: Potassium Chlor 20 meq TAB.ER PO SCH (08:02)
[2023-09-27] MEDS: CMCS: Solifenacin 5 mg TAB (NF) PO SCH (08:02)
[2023-09-27] MEDS: Potassium Chlor 20 meq TAB.ER PO ONE (08:02)
[2023-09-27] MEDS ORDERED: Albuterol/Ipratropium NEB.SOL (2.5/0.5 MG) 3 ML NEB.SOLN INH PRN (10:54)
[2023-09-27] MEDS ORDERED: Albuterol/Ipratropium NEB.SOL (2.5/0.5 MG) 3 ML NEB.SOLN INH SCH (11:00)
[2023-09-27] MEDS: Albuterol/Ipratropium NEB.SOL (2.5/0.5 MG) 3 ML NEB.SOLN INH SCH ×3 (11:45→20:27)
[2023-09-28 06:51] LABS: Calcium 9.3 mg/dL (8.6-10.3); Creatinine, Serum 1.42 mg/dL (0.67-1.17); Magnesium 2.3 mg/dL (1.9-2.7); Potassium 4.2 mmol/L (3.5-5.0); eGFR CKD-EPI 48.4 (>60)
[2023-09-28 09:20] VITALS: BP 132/70
== END 2023-09-28 13:50 | disposition home or self-care (01) ==
LOC: ED 09:05 → EDHOLD 09:05 → SUATTDRO 19:42 → MEDTELE 22:42
PROVIDERS: ADMIT Internal Medicine; ATTEND Student in an Organized Health Care Education/Training Program

== ENCOUNTER 2023-10-03 09:55 | Observation (INO) ==
[2023-10-03 10:29] LABS: ABS Basophils 0.1 10^3/uL (0.0-0.1); ABS Eosinophils 0.2 10^3/uL (0.0-0.5); ABS Lymphocytes 1.2 10^3/uL (1.0-4.8); ABS Monocytes 0.6 10^3/uL (0.0-1.1); ABS Neutrophils 5.4 10^3/uL (1.5-7.6); ABS Nucleated RBC 0.01 10^3/ul; Eosinophil % 2.2 %; Hemoglobin 11.3 g/dL (13.2-16.3); Lymphocyte % 15.9 %; Mean Corpuscular Hemoglobin 31.5 pg (27-33); Mean Corpuscular Hgb Conc 33.1 g/dL (31-36); Mean Platelet Volume 8.4 fL (7.5-11.2); Nucleated Red Blood Cells % 0.1 %/100WBC (0.0-0.8); Platelet Count 102 10^3/uL (150-450); Red Blood Count 3.58 10^6/uL (4.06-5.63); Red Cell Distribution Width 17.8 % (12-17); White Blood Count 7.4 10^3/uL (3.6-10.2)
[2023-10-03 10:34] LABS: INR 1.28 (0.83-1.13)
[2023-10-03 11:04] LABS: Albumin 4.1 g/dL (3.2-5.2); Albumin/Globulin Ratio 1.7 (1-3); Calcium 8.5 mg/dL (8.6-10.3); Creatinine, Serum 1.33 mg/dL (0.67-1.17); Globulin 2.4 g/dL (2-4); Potassium 4.6 mmol/L (3.5-5.0); Total Bilirubin 0.7 mg/dL (0.2-1.0); Total Protein 6.5 g/dL (6.4-8.9); eGFR CKD-EPI 52.4 (>60)
[2023-10-03 13:08] LABS: High Sensitivity Troponin 1 Hr 25 pg/mL (<20)
[2023-10-03] MEDS ORDERED: Levalbuterol HFA INHALER MDI INH PRN (13:29)
[2023-10-03 14:36] LABS: TSH Ultra Thyroid Stim Horm 1.64 mcIU/mL (0.34-5.60)
[2023-10-03] MEDS: DULoxetine DR 60 mg CAP PO SCH (20:22)
[2023-10-03] MEDS: Mometasone/Formoter 100/5 MDI INH SCH (20:35)
[2023-10-04 08:29] LABS: Calcium 8.7 mg/dL (8.6-10.3); Creatinine, Serum 1.36 mg/dL (0.67-1.17); Potassium 4.4 mmol/L (3.5-5.0)
[2023-10-04 09:18] VITALS: BP 123/77
[2023-10-04] MEDS: Aspirin EC 81 mg TAB.EC (enteric coated) PO SCH (09:26)
[2023-10-04] MEDS: Potassium Chlor 20 meq TAB.ER PO SCH (09:29)
[2023-10-04 11:18] LABS: Magnesium 2.5 mg/dL (1.9-2.7)
[2023-10-04 15:41] LABS: Ferritin 153.6 ng/mL (24-336)
== END 2023-10-04 14:30 | disposition home or self-care (01) ==
LOC: ED 09:55 → EDHOLD 09:55 → SUATTDRO 11:44 → MEDTELE 13:21
PROVIDERS: ADMIT Hospitalist; ATTEND Internal Medicine